=== PATIENT | male | born 1940 | race Caucasian/White ===

== ENCOUNTER 2016-04-28 12:45 | Emergency (ER) | payer OTHER ==
[~2016-04-28] VITALS: Ht 175.3 cm; Wt 88.0 kg
[~2016-04-28 12:45] MED LIST: ADV25050 INH; ALBU18HF INHALATION; ALBU8.5H5 INH; ASPI-664 PO; AZIT250T94 PO; FURO-109 PO; GUAI120S26 PO; HYT2 PO; LOSA25TA2 PO; METF500T4 PO; PRED20TA PO; REG SC; XOP15INH INH; [UNRECOGNIZED DRUG - OTHER] SC
[2016-04-28 12:51] VITALS: Ht 175.3 cm; Wt 88.0 kg
[2016-04-28] MEDS ORDERED: ONDANSETRON (ODT) 4 MG TAB ODT STA (13:19)
[2016-04-28] MEDS ORDERED: HYDROCODONE/APAP (10/325) TAB PO ONE (13:30)
--- NOTE | 2016-04-28 13:46 | RADRPT ---
PROCEDURE: XR Chest. CLINICAL INDICATION: Shortness of breath. TECHNIQUE: Single frontal view. COMPARISON: 02/20/2016. FINDINGS: The lungs are clear. The heart is mildly enlarged. There is no pleural effusion. There is no pneumothorax. IMPRESSION: 1. Clear lungs. 2. Mild cardiomegaly. RPTAT: QQ .Gus Thomas MD, MD Date Time Electronically viewed and signed by .Gus Thomas MD, MD on 04/28/2016 13:45 .R/
--- NOTE | 2016-04-28 13:54 | RADRPT ---
PROCEDURE: XR Pelvis. CLINICAL INDICATION: Pelvic pain and left hip pain. TECHNIQUE: Single AP view of the pelvis. COMPARISON: No prior studies are available for comparison. FINDINGS: There is no fracture or dislocation. There is no lytic or blastic lesion. The articular surfaces are intact. There are degenerative changes of both hips with osteophytes not ed. There are degenerative changes of the lower lumbar spine. There is no radiopaque foreign body. IMPRESSION: 1. Degenerative changes. 2. No fracture or other acute abnormality. RPTAT: QQ .Gus Thomas MD, MD Date Time Electronically viewed and signed by .Gus Thomas MD, MD on 04/28/2016 13:54 .R/
--- NOTE | 2016-04-28 14:13 | RADRPT ---
PROCEDURE: US Lower extremity Venous. CLINICAL INDICATION: Left leg pain TECHNIQUE: Multiple sonographic images of the left lower extremity deep venous system was obtained utilizing grayscale, color-flow, compressive sonography and doppler imaging with augmentation. The images were reviewed on a PACS workstation. COMPARISON: None. FINDINGS: There is normal compressibility and flow within the left common femoral, superficial femoral, pipeliner ior tibial, peroneal and popliteal veins. RPTAT: AA IMPRESSION: No sonographic evidence for deep venous thrombosis. .Burke Connors MD, MD Date Time Electronically viewed and signed by .Burke Connors MD, on 04/28/2016 14:13 .S/
[2016-04-28] MEDS ORDERED: HYDR-902 PO (14:35)
[2016-04-28] MEDS ORDERED: DOCU-144 PO (14:35)
--- NOTE | 2016-04-28 14:37 | ERD ---
ER Documentation Chief Complaint Date/Time DATE: 04/28/16 TIME: 14:36 Chief Complaint LT LEG PAIN X FEW WEEKS , SOB , B/L LE EDEMA HPI Patient is a 76-year-old male with diabetes, hypertension, and COPD who presents with left-sided leg pain. He has bilateral lower extremity swelling but this is chronic for him. He does take Lasix. He has sharp left-sided leg pain that started 2 weeks ago in his hip. He was "concerned for clot". He was complaining of shortness of breath as well. Upon review of old medical records this is the patient's ninth visit to the ER since 2007. ROS All systems reviewed and are negative except as per history of present illness. Medications Home Meds Active Scripts Docusate Sodium* (Colace*) 100 Mg Capsule, 100 MG PO BID, #60 CAP Prov:LC DWYER MD 04/28/16 Hydrocodone/Acetaminophen ([place] 10-325 Tablet) 1 Each Tablet, 1 TAB PO Q6H Y for PAIN, #7 TAB Prov:LC DWYER MD 04/28/16 Furosemide* (Lasix*) 40 Mg Tablet, 40 MG PO DAILY, #7 TAB Prov:MERCEDES ARELLANO MD 02/20/16 Azithromycin* (Zithromax*) 250 Mg Tablet, 250 MG PO .ZPACK DIRECTED, #6 TAB TAKE 500 MG (2 TABS) THE FIRST DAY THEN 250 MG (1 TAB) DAYS 2-5 Prov:MERCEDES ARELLANO MD 02/20/16 Albuterol Sulfate* (Ventolin HFA*) 18 Gm Hfa.aer.ad, 2 PUFF INHALATION Q4H, #1 INHALER Prov:MERCEDES ARELLANO MD 02/20/16 Prednisone* (Prednisone*) 20 Mg Tab, 40 MG PO DAILY for 4 Days, TAB Start February 21, 2016 Prov:MERCEDES ARELLANO MD 02/20/16 Jdjxapivqtg-M-Ogdurcaiwu Hb* (Guaifenesin* DM Syrup) 120 Ml Syrup, 10 ML PO Q4H Y for COUGH, #1 BOT Prov:DIANNA MARTÍNEZ NP 09/30/14 Albuterol Sulfate* (Albuterol Sulfate* HFA) 8.5 Gm Hfa.aer.ad, 1-2 PUFF INH Q4 Y for SHORTNESS OF BREATH, #1 EA Prov:CYNTHIADIANNA HOLM NIGHT MONITOR 09/30/14 Reported Medications Levalbuterol* (Xopenex* HFA) 15 Gm Inha, 1 INH INH Q12 05/20/11 Salmeterol Xinaf/Fluticasone* (Advair 250/50 Diskus*) 1 Inh Inha, 1 INH INH Q12 05/20/11 [Regular] No Conflict Check, 25 SC PM 01/01/11 Aspirin (Aspirin Low Dose) 81 Mg Tablet.dr, 81 MG PO AM, #1 01/01/11 Insulin Human Regular (Novolin-R) 100 Unit/Ml Soln, 15 UNIT SC AM, #1 12/30/10 Metformin* (Glucophage*) 500 Mg Tab, PO DAILY 12/30/10 Losartan Potassium* (Cozaar*) 25 Mg Tablet, PO DAILY 12/30/10 Terazosin Hcl* (Hytrin*) 2 Mg Capsule, 2 MG PO daily hs 11/12/10 Allergies Allergies: Coded Allergies: No Known Drug Allergies (Verified Allergy, Unknown, 08/22/13) PMhx/Soc History of Surgery: Yes Anesthesia Reaction: No Hx Neurological Disorder: No Hx Respiratory Disorders: Yes (COPD) Hx Cardiac Disorders: Yes (htn) Hx Psychiatric Problems: No Hx Miscellaneous Medical Probl: Yes (dm) Hx Alcohol Use: No Hx Substance Use: No Hx Tobacco Use: No Smoking Status: Never smoker FmHx Family History: diabetes Physical Exam Vitals Vital Signs Date Time Temp Pulse Resp B/P Pulse Ox O2 Delivery O2 Flow Rate FiO2 04/28/16 12:51 97.9 87 18 128/60 96 Physical Exam Const: No acute distress Head: Atraumatic Eyes: Normal Conjunctiva ENT: Normal External Ears, Nose and Mouth. Neck: Full range of motion..~ No meningismus. Resp: Clear to auscultation bilaterally Cardio: Regular rate and rhythm, no murmurs Abd: Soft, non tender, non distended. Normal bowel sounds Skin: No sign of cellulitis or infection Back: No midline or flank tenderness Ext: Bilateral lower extremity edema with good pulses bilaterally, patient does have pain of the left hip with range of motion but no deformity or rotation noted Neur: Awake and alert Psych: Normal Mood and Affect Results 24 hrs Current Medications Medications (Trade) Dose Ordered Sig/Joey Route PRN Reason Start Time Stop Time Status Last Admin Dose Admin Acetaminophen/ Hydrocodone Bitart ([place] (10)) 1 tab ONCE ONCE PO 04/28/16 13:30 04/28/16 13:31 DC 04/28/16 13:30 Ondansetron HCl (Zofran Odt) 4 mg ONCE STAT ODT 04/28/16 13:19 04/28/16 13:22 DC 04/28/16 13:30 Procedures/MDM EKG read by me: Rate/Rhythm: Regular rate and rhythm at a rate of 81 Intervals: Normal Impression: No evidence of ischemia or arrhythmia Ultrasound left lower extremity negative per radiology. Chest x-ray and pelvic x-ray negative per radiology. Patient is a 76-year-old male presents with left-sided leg pain. Ultrasound was negative for DVT. X-ray was negative for hip fracture. At this point I believe outpatient management is appropriate. The patient has no sign of arterial ischemia. There is no sign of infection or abscess. At this point I believe outpatient management is appropriate but he will need to follow-up with his primary doctor within 24-48 hours. The patient can return for any worsening symptoms. The patient will be given [place] for pain. Departure Diagnosis: Primary Impression: Pain of left leg Condition: Fair Patient Instructions: Possible Causes of Low Back or Leg Pain Referrals: Your doctor Additional Instructions: Call your primary care doctor TOMORROW for an appointment during the next 1-2 days.See the doctor sooner or return here if your condition worsens before your appointment time. LC DWYER MD Apr 28, 2016 14:36
== END 2016-04-28 14:51 | disposition home or self-care (01) ==
LOC: E/R 12:45
DX: M79.605 Pain in left leg (principal); E11.9 Type 2 diabetes mellitus without complications; I10 Essential (primary) hypertension; J44.9 Chronic obstructive pulmonary disease, unspecified; Z79.82 Long term (current) use of aspirin; Z79.84 Long term (current) use of oral hypoglycemic drugs
CPT/HCPCS: 71010; 72170; 93971; Z7502; Z7610

== ENCOUNTER 2016-07-23 12:07 | Emergency (ER) | payer OTHER ==
[~2016-07-23] VITALS: Ht 160 cm; Wt 89.0 kg
[~2016-07-23 12:07] MED LIST changes: +DOCU-144 PO; +HYDR-902 PO; +LEVA15HF6 INH; -XOP15INH INH
[2016-07-23 12:11] VITALS: Ht 160 cm; Wt 89.0 kg
[2016-07-23] MEDS ORDERED: HYDROCODONE/APAP (5/325) TAB PO ONE (14:00)
[2016-07-23] MEDS ORDERED: HYDR-906 PO (15:59)
--- NOTE | 2016-07-23 16:05 | ERD ---
ER Documentation Chief Complaint Date/Time DATE: 07/23/16 TIME: 16:03 Chief Complaint back pain intermittent x 2 mos ROS All systems reviewed and are negative except as per history of present illness. Medications Home Meds Active Scripts Hydrocodone/Acetaminophen ([place] 5-325 Tablet) 1 Each Tablet, 1 TAB PO Q6H Y for PAIN, #20 TAB Prov:JAS GARNER Rosalba 07/23/16 Docusate Sodium* (Colace*) 100 Mg Capsule, 100 MG PO BID, #60 CAP Prov:LC DWYER MD 04/28/16 Hydrocodone/Acetaminophen ([place] 10-325 Tablet) 1 Each Tablet, 1 TAB PO Q6H Y for PAIN, #7 TAB Prov:LC DWYER MD 04/28/16 Furosemide* (Lasix*) 40 Mg Tablet, 40 MG PO DAILY, #7 TAB Prov:MERCEDES ARELLANO MD 02/20/16 Azithromycin* (Zithromax*) 250 Mg Tablet, 250 MG PO .ZPACK DIRECTED, #6 TAB TAKE 500 MG (2 TABS) THE FIRST DAY THEN 250 MG (1 TAB) DAYS 2-5 Prov:MERCEDSE ARELLANO MD 02/20/16 Albuterol Sulfate* (Ventolin HFA*) 18 Gm Hfa.aer.ad, 2 PUFF INHALATION Q4H, #1 INHALER Prov:MERCEDES ARELLANO MD 02/20/16 Prednisone* (Prednisone*) 20 Mg Tab, 40 MG PO DAILY for 4 Days, TAB Start February 21, 2016 Prov:MERCEDES ARELLANO MD 02/20/16 Jpgrogxfucv-X-Tzpyrfetgy Hb* (Guaifenesin* DM Syrup) 120 Ml Syrup, 10 ML PO Q4H Y for COUGH, #1 BOT Prov:DIANNA MARTÍNEZ NP 09/30/14 Albuterol Sulfate* (Albuterol Sulfate* HFA) 8.5 Gm Hfa.aer.ad, 1-2 PUFF INH Q4 Y for SHORTNESS OF BREATH, #1 EA Prov:DIANNA MARTÍNEZ NP 09/30/14 Reported Medications Levalbuterol* (Xopenex* HFA) 15 Gm Inha, 1 INH INH Q12 05/20/11 Salmeterol Xinaf/Fluticasone* (Advair 250/50 Diskus*) 1 Inh Inha, 1 INH INH Q12 05/20/11 [Regular] No Conflict Check, 25 SC PM 01/01/11 Aspirin (Aspirin Low Dose) 81 Mg Tablet.dr, 81 MG PO AM, #1 01/01/11 Insulin Human Regular (Novolin-R) 100 Unit/Ml Soln, 15 UNIT SC AM, #1 12/30/10 Metformin* (Glucophage*) 500 Mg Tab, PO DAILY 12/30/10 Losartan Potassium* (Cozaar*) 25 Mg Tablet, PO DAILY 12/30/10 Terazosin Hcl* (Hytrin*) 2 Mg Capsule, 2 MG PO daily hs 11/12/10 Allergies Allergies: Coded Allergies: No Known Drug Allergies (Verified Allergy, Unknown, 08/22/13) PMhx/Soc History of Surgery: Yes Anesthesia Reaction: No Hx Neurological Disorder: No Hx Respiratory Disorders: Yes (COPD) Hx Cardiac Disorders: Yes (htn) Hx Psychiatric Problems: No Hx Miscellaneous Medical Probl: Yes (dm) Hx Alcohol Use: No Hx Substance Use: No Hx Tobacco Use: No Physical Exam Vitals Vital Signs Date Time Temp Pulse Resp B/P Pulse Ox O2 Delivery O2 Flow Rate FiO2 07/23/16 12:11 98.1 91 20 133/62 99 Physical Exam Const: [] Head: Atraumatic Eyes: Normal Conjunctiva ENT: Normal External Ears, Nose and Mouth. Neck: Full range of motion..~ No meningismus. Resp: Clear to auscultation bilaterally Cardio: Regular rate and rhythm, no murmurs Abd: Soft, non tender, non distended. Normal bowel sounds Skin: No petechiae or rashes Back: No midline or flank tenderness Ext: No cyanosis, or edema Neur: Awake and alert Psych: Normal Mood and Affect Results 24 hrs Current Medications Medications (Trade) Dose Ordered Sig/Joey Route PRN Reason Start Time Stop Time Status Last Admin Dose Admin Acetaminophen/ Hydrocodone Bitart ([place] (5/325)) 1 tab ONCE ONCE PO 07/23/16 14:00 07/23/16 14:01 DC 07/23/16 14:09 Vanessa/SHARON Lynn note- Subjective-patient presents with low-back pain and bilateral hip pain worsening over the last few months. His no history of acute trauma, fevers, bowel or bladder incontinence. Objective-patient has mild tenderness in the lumbar spine paraspinous muscles in pain with passive range of motion of bilateral hips. There is no evidence of ischemia, weakness. X-rays of hip and lumbar spine showed general changes without evidence of acute findings, fracture, dislocations. Assessment [id number] pain and bilateral hip pain without evidence of fracture , dislocation, which showed infection, neurologic deficit. Plan -pain control and instructions to follow-up with primary doctor nor speed piece for further evaluation. Instructions return for fevers, weakness, new or worsening symptoms. Departure Diagnosis: Primary Impression: Back pain Condition: Stable Patient Instructions: Back Pain (Acute Or Chronic) Additional Instructions: Llame al doctor MAANA y prabha erasmo TEMITOPE PARA DENTRO DE 1-2 CHERY.Dgale a la secretaria que nosotros le instruimos hacer esta temitope.Avise o llame si boss condicin se empeora antes de la temitope. Regresa aqui si peor o no mejor. MERCEDES ARELLANO MD July 23, 2016 16:05
--- NOTE | 2016-07-23 16:35 | RADRPT ---
PROCEDURE: XR Hip. CLINICAL INDICATION: Right hip pain. TECHNIQUE: AP and frog-leg lateral views of the right hip were obtained. COMPARISON: None FINDINGS: The osseous structures are well mineralized. No acute fracture or dislocations are seen. Mild to mod erate osteoarthritis of the right hip is seen. The soft tissue structures are intact. IMPRESSION: Mild to moderate osteoarthritis of the right hip. RPTAT: HPNM Physician Juan Date Time Electronically viewed and signed by Jeffrey Vickers Physician on 07/23/2016 16:35 /
--- NOTE | 2016-07-23 16:36 | RADRPT ---
PROCEDURE: XR Hip. CLINICAL INDICATION: Left hip pain. TECHNIQUE: AP and frog-leg lateral views of the left hip were obtained. COMPARISON: None FINDINGS: No acute fracture or dislocations are seen. Mild to moderate joint space narrowing and osteophytosis of the left hip is seen. The osseous structures are well mineralized. The soft tissue structures are intact. IMPRESSION: Mild to moderate osteoarthritis of the left hip. RPTAT: HPNM Physician Juan Date Time Electronically viewed and signed by Physician Juan on 07/23/2016 16:35 /
--- NOTE | 2016-07-23 16:37 | RADRPT ---
PROCEDURE: XR L-Spine. CLINICAL INDICATION: Low back pain. TECHNIQUE: AP, lateral, and cone down views of the lumbar spine were obtained. COMPARISON: None FINDINGS: The lumbar lordosis is straightened. Multilevel endplate osteophytosis is seen with disk height loss . The most significant disk height loss is seen at L5-S1 with moderate disk space narrowing with va cuum disk phenomena. The vertebral body heights are normal. No acute fracture or subluxation is se en. No paravertebral soft tissue abnormality is seen. Atherosclerotic vascular disease is seen. IMPRESSION: 1. Multilevel degenerative spondylosis of the lumbar spine as noted above. 2. Straightening of the lumbar lordosis. RPTAT: HPNM Physician Juan Date Time Electronically viewed and signed by Physician Juan on 07/23/2016 16:37 /
--- NOTE | 2016-07-23 17:14 | ERD ---
ER Documentation Chief Complaint Date/Time DATE: 07/23/16 TIME: 17:10 Chief Complaint back pain intermittent x 2 mos HPI This is a 76-year-old male presents to the ER with lower back pain that radiates to bilateral hips for the last 3 months. Patient was seen here 3 months ago with same complaints and stated that [place] really helped his pain. Patient has not had any trauma to the area. Back pain is severe and has become more constant he has been trying ibuprofen however it gives him stomach acid, so he stopped. Patient denies any fevers or chills. He denies any urinary bowel incontinence. He denies any saddle like anesthesia. ROS 12 point review of systems was done, all negative except per HPI. Medications Home Meds Active Scripts Hydrocodone/Acetaminophen ([place] 5-325 Tablet) 1 Each Tablet, 1 TAB PO Q6H Y for PAIN, #20 TAB Prov:JAS GARNER 07/23/16 Docusate Sodium* (Colace*) 100 Mg Capsule, 100 MG PO BID, #60 CAP Prov:LC DWYER MD 04/28/16 Hydrocodone/Acetaminophen ([place] 10-325 Tablet) 1 Each Tablet, 1 TAB PO Q6H Y for PAIN, #7 TAB Prov:LC DWYER MD 04/28/16 Furosemide* (Lasix*) 40 Mg Tablet, 40 MG PO DAILY, #7 TAB Prov:MERCEDES ARELLANO MD 02/20/16 Azithromycin* (Zithromax*) 250 Mg Tablet, 250 MG PO .ZPACK DIRECTED, #6 TAB TAKE 500 MG (2 TABS) THE FIRST DAY THEN 250 MG (1 TAB) DAYS 2-5 Prov:MERCEDES ARELLANO MD 02/20/16 Albuterol Sulfate* (Ventolin HFA*) 18 Gm Hfa.aer.ad, 2 PUFF INHALATION Q4H, #1 INHALER Prov:MERCEDES ARELLANO MD 02/20/16 Prednisone* (Prednisone*) 20 Mg Tab, 40 MG PO DAILY for 4 Days, TAB Start February 21, 2016 Prov:MERCEDES ARELLANO MD 02/20/16 Rvflrgsinfm-F-Roihmiwyqd Hb* (Guaifenesin* DM Syrup) 120 Ml Syrup, 10 ML PO Q4H Y for COUGH, #1 BOT Prov:DIANNA MARTÍNEZWilfredo [employer] 09/30/14 Albuterol Sulfate* (Albuterol Sulfate* HFA) 8.5 Gm Hfa.aer.ad, 1-2 PUFF INH Q4 Y for SHORTNESS OF BREATH, #1 EA Prov:DIANNA MARTÍNEZWilfredo [employer] 09/30/14 Reported Medications Levalbuterol* (Xopenex* HFA) 15 Gm Inha, 1 INH INH Q12 05/20/11 Salmeterol Xinaf/Fluticasone* ([place] 250/50 Diskus*) 1 Inh Inha, 1 INH INH Q12 05/20/11 [Regular] No Conflict Check, 25 SC PM 01/01/11 Aspirin (Aspirin Low Dose) 81 Mg Tablet.dr, 81 MG PO AM, #1 01/01/11 Insulin Human Regular (Novolin-R) 100 Unit/Ml Soln, 15 UNIT SC AM, #1 12/30/10 Metformin* (Glucophage*) 500 Mg Tab, PO DAILY 12/30/10 Losartan Potassium* (Cozaar*) 25 Mg Tablet, PO DAILY 12/30/10 Terazosin Hcl* (Hytrin*) 2 Mg Capsule, 2 MG PO daily hs 11/12/10 Allergies Allergies: Coded Allergies: No Known Drug Allergies (Verified Allergy, Unknown, 08/22/13) PMhx/Soc History of Surgery: Yes Anesthesia Reaction: No Hx Neurological Disorder: No Hx Respiratory Disorders: Yes (COPD) Hx Cardiac Disorders: Yes (htn) Hx Psychiatric Problems: No Hx Miscellaneous Medical Probl: Yes (dm) Hx Alcohol Use: No Hx Substance Use: No Hx Tobacco Use: No Physical Exam Vitals Vital Signs Date Time Temp Pulse Resp B/P Pulse Ox O2 Delivery O2 Flow Rate FiO2 07/23/16 12:11 98.1 91 20 133/62 99 Physical Exam GENERAL: The patient is well developed and appropriate for usual state of health , in no apparent distress. NECK: C-spine is soft and supple. There is no cervical lymphadenopathy. CHEST: Clear to auscultation bilaterally. There are no rales, wheezes or rhonchi. HEART: Regular rate and rhythm. No murmurs, clicks, rubs or gallops. ABDOMEN: Soft, nontender and nondistended. Good bowel sounds. No rebound or guarding. No gross peritonitis. No gross organomegaly or masses. No Mustafa sign or McBurney point tenderness. No pulsatile abdominal mass. BACK: No midline or flank tenderness. Tender to palpation from L3-L5. Tense paraspinal muscles. Negative leg raise test. No step- offs. Patient has full range of motion and non painful ROM of bilateral hips. EXTREMITIES: Equal pulses bilaterally. There is no peripheral clubbing, cyanosis or edema. No focal swelling or erythema. Full range of motion. Grossly neurovascularly intact. NEURO: Alert and oriented. Cranial nerves II through XII are intact. Motor strength in all 4 extremities with 5/5 strength. Sensation grossly intact. Normal speech and gait. SKIN: There is no apparent rash or petechia. The skin is warm and dry. Results 24 hrs Current Medications Medications (Trade) Dose Ordered Sig/Joey Route PRN Reason Start Time Stop Time Status Last Admin Dose Admin Acetaminophen/ Hydrocodone Bitart ([place] (5/325)) 1 tab ONCE ONCE PO 07/23/16 14:00 07/23/16 14:01 DC 07/23/16 14:09 Procedures/MDM Differential Diagnosis includes but is not limited to back strain, vertebral fracture, epidural abscess, cauda equina, herniated disc, AAA rupture, kidney stones, UTI, pyelonephritis. This is a 76-year-old male who presents to the ER with lower back pain that radiates to bilateral hips. Patient did have some degenerative changes on x-ray. Dr. Talamantes read xray and gave me a wet read. There is no history of trauma patient is neurovascularly intact. He is able to ambulate without any problems. He is afebrile and well-appearing. Patient has had this problem over the last few months likely acute on chronic pain. Patient will be sent home with [place]. He was advised to be very careful with because it may make him very sleepy or dizzy. I discussed the side effects with his as well. Patient is to follow-up with his primary care doctor within 1-2 days return to ER sooner if symptoms worsen. Patient understands and agrees with plan. Departure Diagnosis: Primary Impression: Back pain Condition: Stable Patient Instructions: Back Pain (Acute Or Chronic) Additional Instructions: Llame al doctor BENJAMIN armando erasmo TEMITOPE PARA DENTRO DE 1-2 CHERY.Dgale a la secretaria que nosotros le instruimos hacer esta temitope.Avise o llame si boss condicin se empeora antes de la temitope. Regresa aqui si peor o no mejor. JAS GARNER July 23, 2016 17:14
== END 2016-07-23 16:18 | disposition home or self-care (01) ==
LOC: FTE 12:07
DX: M54.5 Low back pain (principal); I10 Essential (primary) hypertension; J44.9 Chronic obstructive pulmonary disease, unspecified; E11.9 Type 2 diabetes mellitus without complications; Z79.4 Long term (current) use of insulin; Z79.82 Long term (current) use of aspirin; Z79.84 Long term (current) use of oral hypoglycemic drugs
CPT/HCPCS: 72100; 73510; Z7502; Z7610

== ENCOUNTER 2016-10-15 09:23 | Inpatient (IN) | payer OTHER ==
[~2016-10-15] VITALS: Ht 154.9 cm; Wt 70.0 kg
[~2016-10-15 09:23] MED LIST changes: +HYDR-906 PO
[2016-10-15 09:26] VITALS: Ht 154.9 cm; Wt 70.0 kg
[2016-10-15] MEDS ORDERED: ALBUTEROL 0.5% (NEB) 2.5 MG/0.5 ML AMP INH STA (10:00)
[2016-10-15] MEDS ORDERED: METHYLPREDNISOLONE 125 MG INJ IV STA (10:00)
--- NOTE | 2016-10-15 10:30 | ERA ---
ER Documentation Chief Complaint Date/Time DATE: 10/15/16 TIME: 10:28 Chief Complaint SOB X 3 WEEKS, HX COPD HPI This is a 76-year-old male with a history of COPD with gradual progressive worsening shortness of breath over the past 3 weeks. His symptoms today are was at the worst they have been when he has dyspnea on exertion and no orthopnea. He has had a slight cough for the past 2 weeks but nonproductive. He also states that he has lost 20 pounds in the past month with anorexia. Denies any abdominal pain chest pain fever dysuria hematuria back pain headache dizziness ROS All systems reviewed and are negative except as per history of present illness. Medications Home Meds Active Scripts Hydrocodone/Acetaminophen ([place] 5-325 Tablet) 1 Each Tablet, 1 TAB PO Q6H Y for PAIN, #20 TAB Prov:JAS GARNER 07/23/16 Docusate Sodium* (Colace*) 100 Mg Capsule, 100 MG PO BID, #60 CAP Prov:LC DWYER MD 04/28/16 Hydrocodone/Acetaminophen ([place] 10-325 Tablet) 1 Each Tablet, 1 TAB PO Q6H Y for PAIN, #7 TAB Prov:LC DWYER MD 04/28/16 Furosemide* (Lasix*) 40 Mg Tablet, 40 MG PO DAILY, #7 TAB Prov:MERCEDES ARELLANO MD 02/20/16 Azithromycin* (Zithromax*) 250 Mg Tablet, 250 MG PO .ZPACK DIRECTED, #6 TAB TAKE 500 MG (2 TABS) THE FIRST DAY THEN 250 MG (1 TAB) DAYS 2-5 Prov:MERCEDES ARELLANO MD 02/20/16 Albuterol Sulfate* (Ventolin HFA*) 18 Gm Hfa.aer.ad, 2 PUFF INHALATION Q4H, #1 INHALER Prov:MERCEDES ARELLANO MD 02/20/16 Prednisone* (Prednisone*) 20 Mg Tab, 40 MG PO DAILY for 4 Days, TAB Start February 21, 2016 Prov:MERCEDES ARELLANO MD 02/20/16 Hfdnvcdlawn-U-Qznnfebphu Hb* (Guaifenesin* DM Syrup) 120 Ml Syrup, 10 ML PO Q4H Y for COUGH, #1 BOT Prov:DIANNA MARTÍNEZ NP 09/30/14 Albuterol Sulfate* (Albuterol Sulfate* HFA) 8.5 Gm Hfa.aer.ad, 1-2 PUFF INH Q4 Y for SHORTNESS OF BREATH, #1 EA Prov:DIANNA MARTÍNEZ BEATA Peck [employer] 09/30/14 Reported Medications Levalbuterol* (Xopenex* HFA) 15 Gm Inha, 1 INH INH Q12 05/20/11 Salmeterol Xinaf/Fluticasone* (Advair 250/50 Diskus*) 1 Inh Inha, 1 INH INH Q12 05/20/11 [Regular] No Conflict Check, 25 SC PM 01/01/11 Aspirin (Aspirin Low Dose) 81 Mg Tablet.dr, 81 MG PO AM, #1 01/01/11 Insulin Human Regular (Novolin-R) 100 Unit/Ml Soln, 15 UNIT SC AM, #1 12/30/10 Metformin* (Glucophage*) 500 Mg Tab, PO DAILY 12/30/10 Losartan Potassium* (Cozaar*) 25 Mg Tablet, PO DAILY 12/30/10 Terazosin Hcl* (Hytrin*) 2 Mg Capsule, 2 MG PO daily hs 11/12/10 Allergies Allergies: Coded Allergies: No Known Drug Allergies (Verified Allergy, Unknown, 08/22/13) PMhx/Soc History of Surgery: Yes Anesthesia Reaction: No Hx Neurological Disorder: No Hx Respiratory Disorders: Yes (COPD) Hx Cardiac Disorders: Yes (htn) Hx Psychiatric Problems: No Hx Miscellaneous Medical Probl: Yes (dm) Hx Alcohol Use: No Hx Substance Use: No Hx Tobacco Use: No Smoking Status: Never smoker FmHx Family History: No coronary disease Physical Exam Vitals Vital Signs Date Time Temp Pulse Resp B/P Pulse Ox O2 Delivery O2 Flow Rate FiO2 10/15/16 11:28 110 24 148/73 100 Nasal Cannula 2.0 10/15/16 10:25 2.0 10/15/16 10:24 91 18 100 Nasal Cannula 2.0 10/15/16 10:06 Nasal Cannula 2 10/15/16 09:54 Nasal Cannula 2.0 10/15/16 09:26 97.6 57 24 114/57 87 Physical Exam Const: [Well-developed, well-nourished] Head: [Atraumatic, normocephalic] Eyes: [Normal Conjunctiva, PERRLA, EOMI, normal sclera, no nystagmus] ENT: [Normal External Ears, Nose and Mouth, moist mucus membranes.] Neck: [Full range of motion. No meningismus, no lymphadenopathy.] Resp: Distant breath sounds bilaterally decreased breath sounds in the bases Cardio: [Regular rate and rhythm, no murmurs, S1 S2 present] Abd: [Soft, non tender x 4, non distended. Normal bowel sounds, no guarding or rebound, no pulsitile abdominal masses or bruits] Skin: [No petechiae or rashes, no ecchymosis , no maculopapular rash] Back: [No midline or flank tenderness] Ext: [No cyanosis, or edema, FROM x 4, normal inspection, neurovascularly intact x 4] Neur: [Awake and alert, STR 5/5 x 4, sensation intact x 4, no focal findings, cerebellum intact] Psych: [Normal Mood and Affect] Result Diagram: 10/15/16 1005 10/15/16 1005 Results 24 hrs Laboratory Tests Test 10/15/16 10:05 10/15/16 12:36 10/15/16 13:18 White Blood Count 7.710^3/ul Red Blood Count 2.7510^6/ul Hemoglobin 8.1g/dl Hematocrit 25.0% Mean Corpuscular Volume 90.9fl Mean Corpuscular Hemoglobin 29.5pg Mean Corpuscular Hemoglobin Concent 32.4g/dl Red Cell Distribution Width 18.4% Platelet Count 08062^3/UL Mean Platelet Volume 10.1fl Neutrophils % % Segmented Neutrophils % (Manual) 36% Band Neutrophils % (Manual) 8% Lymphocytes % % Lymphocytes % (Manual) 37% Monocytes % % Monocytes % (Manual) 2% Eosinophils % % Eosinophils % (Manual) 5% Basophils % % Basophils % (Manual) 2% Metamyelocytes % (manual) 1% Myelocytes % (Manual) 4% Promyelocytes % (Manual) 2% Nucleated Red Blood Cells % 16% Neutrophils # 10^3/ul Neutrophils # (Manual) 2.810^3/ul Band Neutrophils # 0.610^3/ul Absolute Lymphocytes (Manual) 2.810^3/ul Lymphocytes # 10^3/ul Monocytes # 10^3/ul Absolute Monocytes (Manual) 0.110^3/ul Eosinophils # 10^3/ul Basophils # 10^3/ul Basophils # (Manual) 0.110^3/ul Metamyelocytes # 0.010^3/ul Myelocytes # 0.310^3/ul Promyelocytes # 0# Nucleated Red Blood Cells # 10^3/ul Platelet Estimate DECREASED Polychromasia 2+ Hypochromasia 1+ Anisocytosis 1+ Macrocytosis 1+ Prothrombin Time 13.2Sec Prothrombin Time Ratio 1.0 INR International Normalized Ratio 1.00 Activated Partial Thromboplast Time 28.1Sec Sodium Level 133mmol/L Potassium Level 5.1mmol/L Chloride Level 97mmol/L Carbon Dioxide Level 22mmol/L Anion Gap 19 Blood Urea Nitrogen 15mg/dl Creatinine 0.75mg/dl Glucose Level 407mg/dl Calcium Level 8.2mg/dl Total Bilirubin 0.5mg/dl Direct Bilirubin 0.00mg/dl Indirect Bilirubin 0.5mg/dl Aspartate Amino Transf (AST/SGOT) 35IU/L Alanine Aminotransferase (ALT/SGPT) 27IU/L Alkaline Phosphatase 1398IU/L Troponin I < 0.012ng/ml B-Type Natriuretic Peptide 402PG/ML Total Protein 6.9g/dl Albumin 3.6g/dl Globulin 3.30g/dl Albumin/Globulin Ratio 1.09 Bedside Glucose 435mg/dL 429mg/dL Current Medications Medications (Trade) Dose Ordered Sig/Joey Route PRN Reason Start Time Stop Time Status Last Admin Dose Admin Albuterol (Proventil 0.5% (Neb)) 10 mg ONCE STAT INH 10/15/16 10:00 10/15/16 10:03 DC 10/15/16 10:22 Methylprednisolone Sodium Succinate (Solu-Medrol) 125 mg ONCE STAT IV 10/15/16 10:00 10/15/16 10:04 DC 10/15/16 10:11 Insulin Human Regular (Novolin-R) 8 unit ONCE ONCE SC 10/15/16 11:30 10/15/16 11:31 Cancel Insulin Human Regular (Humulin R) 8 unit ONCE ONCE SC 10/15/16 12:00 10/15/16 12:01 DC 10/15/16 11:50 Procedures/MDM EKG: Rate/Rhythm: [Normal Sinus Rhythm,NL intervals] QRS, ST, QT: NORMAL LA, QRS, QT] Impression: [NORMAL EKG] PROCEDURE: XR Chest. CLINICAL INDICATION: chest pain TECHNIQUE: Single AP view of the chest were obtained COMPARISON: 04/28/2016 FINDINGS: The heart and mediastinum are within normal limits. The pulmonary vasculature are unremarkable. The aorta is unremarkable. There is no lung consolidation, pleural effusion or pneumothorax. There is no acute osseous abnormality. IMPRESSION: No acute disease. RPTAT: AA .Branden Alanis MD, MD Date Time Electronically viewed and signed by .Branden Alanis MD, on 10/15/2016 10:44 .J/ CC: ZAIDA LOPEZ DO Patient states he feels much better after his breathing treatments. The patient has some unexplained weight loss of 20 pounds over the past month. Does need to be investigated. He does have anemia that is not micro-or macrocytic and should be worked up for acute loss. He says he can only walk 2 or 3 feet before he gets very short of breath. He said 3 weeks ago he was able to walk about 30-50 feet. He is not on any home oxygen at this time We will admit for COPD exacerbation, anemia, severe weight loss Departure Diagnosis: Primary Impression: COPD exacerbation Additional Impressions: Anemia Qualified Code: D64.9 - Anemia, unspecified type Weight loss Condition: Stable ZAIDA LOPEZ DO Oct 15, 2016 10:30
[2016-10-15 10:31] LABS: ABNORMAL IP MESSAGE 1; HEMOGLOBIN 8.1 g/dl (14.0-18.0); MEAN CORPUSCULAR HEMOGLOBIN 29.5 pg (29.0-33.0); MEAN CORPUSCULAR HGB CONC 32.4 g/dl (32.0-37.0); MEAN CORPUSCULAR VOLUME 90.9 fl (82.0-101.0); MEAN PLATELET VOLUME 10.1 fl (7.4-10.4); NUCLEATED RED BLOOD CELLS% 21.7 /100WBC (0.0-0.0); PLATELET COUNT 225 10^3/UL (140-415); POSITIVE DIFF @See below; RED BLOOD COUNT 2.75 10^6/ul (4.70-6.10); RED CELL DISTRIBUTION WIDTH 18.4 % (11.5-14.5); WHITE BLOOD COUNT 7.7 10^3/ul (4.8-10.8)
--- NOTE | 2016-10-15 10:44 | RADRPT ---
PROCEDURE: XR Chest. CLINICAL INDICATION: chest pain TECHNIQUE: Single AP view of the chest were obtained COMPARISON: 04/28/2016 FINDINGS: The heart and mediastinum are within normal limits. The pulmonary vasculature are unremarkable. The aorta is unremarkable. There is no lung consolidation, pleural effusion or pneumothorax. There i s no acute osseous abnormality. IMPRESSION: No acute disease. RPTAT: AA .Branden Alanis MD, Date Time Electronically viewed and signed by .Branden Alanis MD, MD on 10/15/2016 10:44 .J/
[2016-10-15 10:46] LABS: PARTIAL THROMBOPLASTIN TIME 28.1 Sec (25.0-35.0); PROTIME 13.2 Sec (12.2-14.2)
[2016-10-15 10:48] LABS: ALANINE AMINOTRANSFERASE 27 IU/L (13-69); ALBUMIN 3.6 g/dl (3.3-4.9); ALBUMIN/GLOBULIN RATIO 1.09; ALKALINE PHOSPHATASE 1398 IU/L (42-121); ANION GAP 19 (8-16); ASPARTATE AMINO TRANSFERASE 35 IU/L (15-46); BILIRUBIN,INDIRECT 0.5 mg/dl (0-1.1); BILIRUBIN,TOTAL 0.5 mg/dl (0.2-1.3); BLOOD UREA NITROGEN 15 mg/dl (7-20); CALCIUM 8.2 mg/dl (8.4-10.2); CARBON DIOXIDE 22 mmol/L (21-31); CHLORIDE 97 mmol/L (97-110); CREATININE 0.75 mg/dl (0.61-1.24); POTASSIUM 5.1 mmol/L (3.5-5.1); SODIUM 133 mmol/L (135-144); TOTAL PROTEIN 6.9 g/dl (6.1-8.1)
[2016-10-15 10:54] LABS: GLUCOSE 407 mg/dl (70-220)
[2016-10-15 11:00] LABS: B-TYPE NATRIURETIC PEPTIDE 402 PG/ML (0-450)
[2016-10-15 11:01] LABS: TROPONIN-I < 0.012 ng/ml (0.00-0.12)
[2016-10-15] MEDS ORDERED: INSULIN REGULAR 10 ML INJ SC ONE (11:30)
[2016-10-15 11:47] LABS: ANISOCYTOSIS 1+ (0-0); BASOPHILS % (M) 2 % (0-2); EOSINOPHILS % (M) 5 % (0-7); ERYTHROBLAST% (NRBC) (M) 16 % (0-0); HYPOCHROMASIA 1+ (0-0); METAMYELOCYTES %M 1 % (0-0); MONOCYTES % (M) 2 % (0-11); MYELOCYTES % (M) 4 % (0.0-0.0); PLATELET ESTIMATE DECREASED; POLYCHROMASIA 2+ (0-0); PROMYELOCYTES #M 0 # (0-0); PROMYELOCYTES % (M) 2 % (0-0)
[2016-10-15] MEDS ORDERED: INSULIN REGULAR, HUMAN 100 UNIT/1 ML 3ML VIAL SC ONE ×2 (12:00→13:30)
[2016-10-15] MEDS ORDERED: ONDANSETRON 4 MG INJ IV PRN ×2 (13:30→18:30)
[2016-10-15] MEDS ORDERED: ACETAMINOPHEN 325 MG TAB PO PRN ×2 (13:30→18:30)
[2016-10-15] MEDS ORDERED: FUROSEMIDE 20 MG INJ IV ONE (13:30)
[2016-10-15 14:48] VITALS: TEMP 99.1
[2016-10-15] MEDS ORDERED: SOD CHLORIDE 0.9% 500 ML IV STA (14:52)
[2016-10-15] MEDS ORDERED: ALBUTEROL/IPRATROPIUM (NEB) 3 ML AMP HHN PRN (15:30)
--- NOTE | 2016-10-15 16:03 | RADRPT ---
PROCEDURE: CT chest without contrast. CLINICAL INDICATION: Unexplained weight loss into back is TECHNIQUE: CT scan of the chest without contrast was performed on a multi-slice CT scanner. The p atient was scanned without administration of intravenous contrast. Coronal and sagittal reformatted images were obtained from the axial source images. One or more of the following dose reduction techniques were used: - Automated exposure control. - Adjustment of the mA and/or kV according to patient size. Use of iterative reconstruction technique. DLP vol 305.8 mGy CTDI 8.9 mGy-cm COMPARISON: None. FINDINGS: There is no lung consolidation or pleural effusion or pneumothorax. Mild emphysematous changes are s een in the lungs with mild areas of subpleural scarring. There is mild bibasilar atelectasis presen t. Bilateral airways wall thickening is seen. The airways are patent. There is no suspicious nodu le or mass. Aortic and coronary artery atherosclerotic calcifications are present. There is ascending aortic bor derline aneurysmal enlargement measuring up to 4 cm at the greatest AP dimension. There is borderli ne cardiomegaly with trace pericardial fluid. There are no enlarged axillary or mediastinal lymph no hermelinda. There is no acute upper abdominal abnormality. There is a diffusely sclerotic appearance of the osseous structures. Degenerative changes seen thro ughout the thoracic spine there is no fracture or dislocation. IMPRESSION: There is a generalized sclerotic appearance of the entirety the osseous structures of the thorax. T his could represent a diffuse metastatic process or presence of osteodystrophy. This can be further assessed with bone scan or MRI of the thoracic and lumbar spine. Emphysema is seen with mild bibasilar atelectasis and trace subpleural scarring without evidence of acute process. Cardiomegaly is seen with atherosclerotic disease. There is borderline ascending aortic aneurysmal enlargement measuring 4 cm. RPTAT: AA .Branden Alanis MD, Date Time Electronically viewed and signed by .Branden Alanis MD, MD on 10/15/2016 16:03 .Eduard/
[2016-10-15] MEDS ORDERED: SOD CHLORIDE 0.9% 1,000 ML IV STA (16:13)
[2016-10-15 16:48] LABS: IRON 39 ug/dl (35-150)
[2016-10-15 16:58] LABS: TOTAL IRON BINDING CAPACITY 208 ug/dl (241-421)
[2016-10-15 17:26] LABS: THYROID STIMULATING HORMONE 6.46 MIU/L (0.465-4.680)
[2016-10-15 17:46] VITALS: PULSE 107
[2016-10-15] MEDS ORDERED: morphine 2 MG INJ IV PRN (18:30)
[2016-10-15] MEDS ORDERED: NACL 0.9% 3 ML SYG IV SCH (18:30)
[2016-10-15] MEDS ORDERED: ONDANSETRON 4 MG TAB PO PRN (18:30)
[2016-10-15] MEDS ORDERED: ALBUTEROL 18 GM INHALER INH PRN (18:30)
[2016-10-15] MEDS ORDERED: HYPOGLYCEMIA PROTOCOL when Glucose is <70 mg/dL or symptomatic <90 mg/dL. XX ONE (18:30)
[2016-10-15] MEDS ORDERED: Discontinue current oral sulfonylureas (glyburide, glipizide, and/or glimepiride) prior to XX ONE (18:30)
[2016-10-15] MEDS ORDERED: BISACODYL (EC) 5 MG TAB PO PRN (18:30)
[2016-10-15] MEDS ORDERED: METOCLOPRAMIDE 10 MG INJ IV PRN (18:30)
[2016-10-15] MEDS ORDERED: MAGNESIUM HYDROXIDE 30ML CUP PO PRN (18:30)
[2016-10-15] MEDS ORDERED: DOCUSATE SODIUM 100 MG CAP PO PRN (18:30)
[2016-10-15] MEDS ORDERED: SOD CHLORIDE 0.9% 1,000 ML IV ONE (18:30)
[2016-10-15] MEDS ORDERED: INSULIN ASPART [NOVOLOG] 3 ML PEN SC SCH ×2 (18:45→21:00)
[2016-10-15] MEDS ORDERED: INSULIN ASPART [NOVOLOG] 3 ML PEN SC STA (18:50)
[2016-10-15] MEDS ORDERED: DEXTROSE 50% 50 ML SYRINGE IV PRN ×4 (19:00)
[2016-10-15] MEDS ORDERED: GLUCOSE GEL 15 GRAM TUBE BUCCAL PRN (19:00)
[2016-10-15] MEDS ORDERED: GLUCAGON 1 MG INJ IM PRN (19:00)
[2016-10-15] MEDS ORDERED: ACCU-CHEK XX SCH (19:00)
[2016-10-15] MEDS ORDERED: INSULIN HUMAN REGULAR 100 UNIT in SOD CHLORIDE 0.9% 99 ML IV SCH (19:00)
[2016-10-15] MEDS ORDERED: GLUCOSE GEL 15 GRAM TUBE PO PRN ×2 (19:00)
--- NOTE | 2016-10-15 19:02 | HP ---
Date/Time of Note Date/Time of Note DATE: 10/15/16 TIME: 18:51 Assessment/Plan VTE Prophylaxis VTE Prophylaxis Intervention: SCD's Assessment/Plan Assessment/Plan 76 yo M with DM2, COPD presented with SOB likely 2/2 acute COPD exacerbation. Of greater concern however is patient's DKA/hyperglycemia and apparent self neglect for the past few mos. Etio of weight loss possibly from hyperglycemia v depression v malignancy. #COPD exacerbation: likely given wheezing prednisone burst duonebs #DKA: tried to get pt to ICU for insulin drip, no beds will treat aggressively with IVFs/basal and bolus insulin serum acetone and ketones UA for ketones repeat BMP to eval gap DM education cs #weight loss: uncontrolled DM v occult malignancy v depression CT results reviewed, bone scan ordered sw consult depression labs in process, b12/TFTs #HTN/BPH: cont home cozaar and hytrin diabetic diet DVT prophx HPI/ROS Admit Date/Time Admit Date/Time Oct 15, 2016 at 13:31 Hx of Present Illness CC SOB HPI 76 yo M with pmhx COPD, HTN, BPH, DM2 presents with several days of SOB. Pt states he's actually been feeling SOB for the past 3 years but it recently got acutely worse. Pt also reports decreased appetite and decreased PO intake and 20 pounds weight loss in the past month. +polyuria, +polydipsia. +constipation. No diarrhea. No fevers or chills Of larger concern, pt has not been taking his insulin for the past month because he has been feeling depressed. No previous history of low mood PMH/Family/Social Past Medical History as per [facility] Social History Smoking Status: Never smoker Exam/Review of Systems Vital Signs Vitals Vital Signs Date Time Temp Pulse Resp B/P Pulse Ox O2 Delivery O2 Flow Rate FiO2 10/15/16 17:46 107 10/15/16 14:48 99.1 24 135/66 100 Nasal Cannula 2.0 Exam Exam nad, sitting up in bed flat affect MMM EOMI no mrg lungs with mod scattered end exp wheezes abd soft no rashes no edema BMP with AG a1c 13s. all previous times checked here >10 TSH high lung imaging reviewed Labs Result Diagram: 10/15/16 1005 10/15/16 1005 Medications Medications Current Medications Diagnostic Test (Pha) (Accu-Chek) 1 ea 02 XX ; Start 10/16/16 at 02:00; Status UNV Insulin Glargine (Lantus) 11 unit DAILY@08 SC ; Start 10/16/16 at 08:00; Status UNV Diagnostic Test (Pha) 1 ea 1 ea 02 XX ; Start 10/16/16 at 02:00; Status UNV Sodium Chloride (NS) 1,000 ml @ 1,000 mls/hr Q1H ONCE IV ; Start 10/15/16 at 18 :30; Stop 10/15/16 at 19:29; Status UNV Ondansetron HCl (Zofran Tab) 4 mg Q6H PRN PO NAUSEA AND/OR VOMITING; Start at 18:30 Ondansetron HCl (Zofran Inj) 4 mg Q6H PRN IV NAUSEA AND/OR VOMITING; Start at 18:30; Status UNV Metoclopramide HCl (Reglan) 10 mg Q6H PRN IV NAUSEA AND/OR VOMITING; Start at 18:30; Status UNV Acetaminophen (Tylenol Tab) 650 mg Q6H PRN PO PAIN LEVEL 1-3 OR FEVER; Start at 18:30; Status UNV Acetaminophen/ Hydrocodone Bitart ([place] (5/325)) 1 tab Q6H PRN PO PAIN LEVEL 4 -6; Start 10/15/16 at 18:30; Status UNV Morphine Sulfate (morphine) 2 mg Q4H PRN IV PAIN LEVEL 7-10; Start 10/15/16 at 18:30; Status UNV Docusate Sodium (Colace) 100 mg Q12H PRN PO CONSTIPATION; Start 10/15/16 at 18: 30; Status UNV Magnesium Hydroxide (Milk Of Mag) 30 ml DAILY PRN PO CONSTIPATION; Start at 18:30; Status UNV Bisacodyl (Dulcolax) 5 mg DAILY PRN PO CONSTIPATION; Start 10/15/16 at 18:30; Status UNV Enoxaparin Sodium (Lovenox) 40 mg DAILY SC ; Start 10/16/16 at 09:00; Status UNV Albuterol (Ventolin Hfa) as above Q4 PRN INH SHORTNESS OF BREATH; Start at 18:30; Status UNV Aspirin (Halfprin) 81 mg AM PO ; Start 10/16/16 at 09:00; Status UNV Furosemide (Lasix) 40 mg DAILY PO ; Start 10/16/16 at 09:00; Status UNV Salmeterol Xinafoate/ Fluticasone (Advair 250/50 Diskus) 1 inh Q12 INH ; Start 10/15/16 at 21:00; Status UNV Terazosin HCl (Hytrin) 2 mg QHS PO ; Start 10/15/16 at 21:00; Status UNV Losartan Potassium (Cozaar) 25 mg DAILY PO ; Start 10/16/16 at 09:00; Status UNV Miscellaneous Information 1 ea NOTE XX ; Start 10/15/16 at 19:00 Glucose (Glutose) 15 gm Q15M PRN PO DECREASED GLUCOSE; Start 10/15/16 at 19:00 Glucose (Glutose) 22.5 gm Q15M PRN PO DECREASED GLUCOSE; Start 10/15/16 at 19: 00 Dextrose (D50w Syringe) 25 ml Q15M PRN IV DECREASED GLUCOSE; Start 10/15/16 at 19:00 Dextrose (D50w Syringe) 50 ml Q15M PRN IV DECREASED GLUCOSE; Start 10/15/16 at 19:00 Glucagon (Glucagen) 1 mg Q15M PRN IM DECREASED GLUCOSE; Start 10/15/16 at 19:00 Glucose (Glutose) 15 gm Q15M PRN BUCCAL DECREASED GLUCOSE; Start 10/15/16 at 19 :00 BENNY GARRETT MD Oct 15, 2016 19:01
[2016-10-15] MEDS: SOD CHLORIDE 0.9% 1,000 ML IV SCH ×2 (19:24→23:37)
[2016-10-15 19:45] VITALS: BP 126/66; RESP 18
[2016-10-15 20:15] VITALS: PULSE 103
[2016-10-15 20:29] LABS: CALCIUM 7.7 mg/dl (8.4-10.2); CREATININE 0.57 mg/dl (0.61-1.24); MAGNESIUM 1.8 mg/dl (1.7-2.5)
[2016-10-15] MEDS: SALMETEROL/FLUTICASONE 250/50 INHA INH SCH (20:54)
[2016-10-15] MEDS ORDERED: TERAZOSIN 2 MG CAP PO SCH (21:00)
--- NOTE | 2016-10-15 21:23 | RADRPT ---
PROCEDURE: Ultrasound of the bilateral lower extremity venous system. CLINICAL INDICATION: Bilateral leg pain and swelling, deep venous thrombosis TECHNIQUE: Clayton scale with and without compression, color doppler, spectral doppler of the venous system of the bilateral lower extremities was performed. Venous augmentation maneuvers were utilized . COMPARISON: 04/28/2016 FINDINGS: RIGHT: Common femoral vein: Patent. Femoral vein: Patent. Popliteal vein: Patent. Calf veins: Patent. No soft tissue abnormalities are identified. LEFT: Common femoral vein: Patent. Femoral vein: Patent. Popliteal vein: Patent. Calf veins: Patent. No soft tissue abnormalities are identified. IMPRESSION: No evidence of a deep vein thrombosis within the bilateral lower extremities. RPTAT: AADD .Murali Adams MD, MD Date Time Electronically viewed and signed by .Murali Adams MD, on 10/15/2016 21:23 .B/
[2016-10-15] MEDS ORDERED: INSULIN ASPART [NOVOLOG] 3 ML PEN SC ONE (21:30)
[2016-10-15] MEDS ORDERED: INSULIN GLARGINE [LANtus] 3 ML PEN SC SCH (22:00)
[2016-10-15] MEDS: ACCU-CHEK XX SCH (23:31)
[2016-10-15 23:55] VITALS: BP 125/62; RESP 18
[2016-10-16] VITALS (11 sets, daily range): BP systolic 107–131; BP diastolic 52–60; PULSE 84–107; RESP 16–18
[2016-10-16] MEDS ORDERED: INSULIN ASPART [NOVOLOG] 3 ML PEN SC ONE
[2016-10-16 00:23] LABS: CALCIUM 7.8 mg/dl (8.4-10.2); CREATININE 0.57 mg/dl (0.61-1.24); POTASSIUM 3.9 mmol/L (3.5-5.1)
[2016-10-16 01:38] LABS: ADD UMIC NO; UR ASCORBIC ACID NEGATIVE (NEGATIVE); UR BILIRUBIN (Dip) NEGATIVE (NEGATIVE); UR BLOOD (Dip) NEGATIVE (NEGATIVE); UR CLARITY CLEAR (CLEAR); UR COLOR STRAW (YELLOW); UR GLUCOSE (Dip) 3+ mg/dL (NEGATIVE); UR KETONES (Dip) TRACE mg/dL (NEGATIVE); UR LEUKOCYTE ESTERASE (Dip) NEGATIVE Leu/ul (NEGATIVE); UR NITRITE (Dip) NEGATIVE (NEGATIVE); UR SPECIFIC GRAVITY (Dip) 1.015 (1.003-1.030); UR TOTAL PROTEIN (Dip) NEGATIVE (NEGATIVE); UR UROBILINOGEN (Dip) NEGATIVE (NEGATIVE)
[2016-10-16] MEDS ORDERED: POTASSIUM CHLORIDE (SR) 20 MEQ TAB PO STA (01:43)
[2016-10-16] MEDS: ACCU-CHEK XX SCH (01:50)
[2016-10-16] MEDS ORDERED: ACCU-CHEK XX SCH ×4 (02:00)
[2016-10-16] MEDS: SOD CHLORIDE 0.9% 1,000 ML IV SCH ×2 (05:38→17:35)
[2016-10-16] MEDS ORDERED: INSULIN ASPART [NOVOLOG] 3 ML PEN SC SCH ×2 (08:00→09:00)
[2016-10-16] MEDS ORDERED: INSULIN GLARGINE [LANtus] 3 ML PEN SC SCH (08:00)
[2016-10-16 08:22] LABS: ALBUMIN 3.2 g/dl (3.3-4.9); ALBUMIN/GLOBULIN RATIO 1.03; BILIRUBIN,INDIRECT 0.4 mg/dl (0-1.1); BILIRUBIN,TOTAL 0.4 mg/dl (0.2-1.3); CALCIUM 7.6 mg/dl (8.4-10.2); CREATININE 0.59 mg/dl (0.61-1.24); POTASSIUM 4.5 mmol/L (3.5-5.1); TOTAL PROTEIN 6.3 g/dl (6.1-8.1)
[2016-10-16] MEDS: SALMETEROL/FLUTICASONE 250/50 INHA INH SCH ×2 (09:24→21:29)
[2016-10-16] MEDS: LOSARTAN 25 MG TAB PO SCH (09:26)
[2016-10-16] MEDS: ASPIRIN (EC) 81 MG TAB PO SCH (09:26)
[2016-10-16] MEDS: FUROSEMIDE 40 MG TAB PO SCH (09:26)
[2016-10-16] MEDS: predniSONE 20 MG TAB PO SCH (09:26)
[2016-10-16] MEDS: ENOXAPARIN 40 MG/0.4 ML SYG SC SCH (09:31)
--- NOTE | 2016-10-16 10:10 | PN ---
Date/Time of Note Date/Time of Note DATE: 10/16/16 TIME: 10:10 Assessment/Plan VTE Prophylaxis VTE Prophylaxis Intervention: SCD's Lines/Catheters IV Catheter Type (from [facility]): Peripheral IV Assessment/Plan Chief Complaint/Hosp Course 1. COPD exacerbation, resolving Continue [id number] bronchodilators and oral prednisone 2. Type 2 diabetes, presented with DKA. DKA resolved. -Transition to diet and subcutaneous insulin sliding scale based on weight. Patient will be also given pre-meal insulin 3 times daily. -Endocrinology consult. 3. Hypertension. Stable -Continue Cozaar 4. BPH -On Hytrin. Plan: Patient will be started on a carbohydrate controlled diet. He will also have diabetic education. We will follow-up with endocrinology recommendation. Case discussed with Dr. Doss. Problems: Subjective 24 Hr Interval Summary Free Text/Dictation Patient with no shortness of breath, or other discomfort at this time. Exam/Review of Systems Vital Signs Vitals Vital Signs Date Time Temp Pulse Resp B/P Pulse Ox O2 Delivery O2 Flow Rate FiO2 10/16/16 08:07 84 10/16/16 07:42 97.6 16 120/59 95 10/15/16 14:48 Nasal Cannula 2.0 Intake and Output 10/15/16 10/15/16 10/16/16 15:00 23:00 07:00 Intake Total 80 ml 2033 ml Output Total 100 ml 650 ml Balance -20 ml 1383 ml Exam General: Elderly male, lying in bed not in any acute distress . HEENT: Normocephalic, Atraumatic, No laceration or hematoma; Eyes: PEERL, Conjunctiva clear, Anicteric sclera Neck: Supple without any lymphadenopathy, nontender, no JVD, no carotid bruits, trachea midline, no thyromegaly Cardiac: S1, S2 auscultated, regular rhythm and rate, no mumurs or gallop Pulmonary: Mild wheezing, expiratory+ normal respiratory effort. GI: Abdomen normal to inspection. Soft, non tender, non- distended, no masses, no rebound tenderness or guarding. Bowel sounds active on all four quadrants Genitourinary: Deferred Extremities: No cyanosis, clubbing, or edema. Pulses [2+] bilaterally. Full ROM on all four extremities. No focal weakness appreciated. Neurologic: Alert to person, place, time, and situation. Affect appropriate, intact sensation. Skin: Clean,dry, and intact. No ecchymosis, no rashes, or lesions Results Result Diagram: 10/15/16 1005 10/16/16 0731 Results 24 hrs Laboratory Tests Test 10/15/16 12:36 10/15/16 13:18 10/15/16 15:00 10/15/16 16:14 Bedside Glucose 435 *H 429 *H 546 *H 522 *H Test 10/15/16 17:13 10/15/16 18:34 10/15/16 18:50 10/15/16 21:00 Bedside Glucose 509 *H 507 *H Sodium Level 134 L Potassium Level 5.0 Chloride Level 99 Carbon Dioxide Level 21 Anion Gap 19 H Blood Urea Nitrogen 13 Creatinine 0.57 L Glucose Level 494 *H Calcium Level 7.7 L Phosphorus Level 3.0 Magnesium Level 1.8 Acetone Level (Chemistry) NEGATIVE Free Thyroxine 1.35 Urine Color STRAW Urine Clarity CLEAR Urine pH 6.0 Urine Specific [place] 1.015 Urine Ketones TRACE A Urine Nitrite NEGATIVE Urine Bilirubin NEGATIVE Urine Urobilinogen NEGATIVE Urine Leukocyte Esterase NEGATIVE Urine Hemoglobin NEGATIVE Urine Glucose 3+ H Urine Total Protein NEGATIVE Test 10/15/16 21:08 10/15/16 23:30 10/15/16 23:44 10/16/16 01:35 Bedside Glucose 426 *H 375 H 181 Sodium Level 137 Potassium Level 3.9 Chloride Level 104 Carbon Dioxide Level 22 Anion Gap 15 Blood Urea Nitrogen 13 Creatinine 0.57 L Glucose Level 270 #H Calcium Level 7.8 L Test 10/16/16 04:33 10/16/16 07:31 10/16/16 09:02 Bedside Glucose 114 158 Sodium Level 136 Potassium Level 4.5 Chloride Level 108 Carbon Dioxide Level 22 Anion Gap 11 Blood Urea Nitrogen 13 Creatinine 0.59 L Glucose Level 142 # Calcium Level 7.6 L Total Bilirubin 0.4 Direct Bilirubin 0.00 Indirect Bilirubin 0.4 Aspartate Amino Transf (AST/SGOT) 26 Alanine Aminotransferase (ALT/SGPT) 27 Alkaline Phosphatase 1130 H Total Protein 6.3 Albumin 3.2 L Globulin 3.10 Albumin/Globulin Ratio 1.03 Medications Medications Current Medications Ondansetron HCl (Zofran Tab) 4 mg Q6H PRN PO NAUSEA AND/OR VOMITING; Start at 18:30 Ondansetron HCl (Zofran Inj) 4 mg Q6H PRN IV NAUSEA AND/OR VOMITING; Start at 18:30 Metoclopramide HCl (Reglan) 10 mg Q6H PRN IV NAUSEA AND/OR VOMITING; Start at 18:30 Acetaminophen (Tylenol Tab) 650 mg Q6H PRN PO PAIN LEVEL 1-3 OR FEVER; Start at 18:30 Acetaminophen/ Hydrocodone Bitart ([place] (5/325)) 1 tab Q6H PRN PO PAIN LEVEL 4 -6; Start 10/15/16 at 18:30 Morphine Sulfate (morphine) 2 mg Q4H PRN IV PAIN LEVEL 7-10; Start 10/15/16 at 18:30 Docusate Sodium (Colace) 100 mg Q12H PRN PO CONSTIPATION; Start 10/15/16 at 18: 30 Magnesium Hydroxide (Milk Of Mag) 30 ml DAILY PRN PO CONSTIPATION; Start at 18:30 Bisacodyl (Dulcolax) 5 mg DAILY PRN PO CONSTIPATION; Start 10/15/16 at 18:30 Enoxaparin Sodium (Lovenox) 40 mg DAILY SC Last administered on 10/16/16 09:31 ; Admin Dose 40 MG; Start 10/16/16 at 09:00 Albuterol (Ventolin Hfa) as above Q4 PRN INH SHORTNESS OF BREATH; Start at 18:30 Aspirin (Halfprin) 81 mg AM PO Last administered on 10/16/16 09:26; Admin Dose 81 MG; Start 10/16/16 at 09:00 Furosemide (Lasix) 40 mg DAILY PO Last administered on 10/16/16 09:26; Admin Dose 40 MG; Start 10/16/16 at 09:00 Salmeterol Xinafoate/ Fluticasone (Advair 250/50 Diskus) 1 inh Q12 INH Last administered on 10/16/16 09:24; Admin Dose 1 INH; Start 10/15/16 at 21:00 Terazosin HCl (Hytrin) 2 mg QHS PO Last administered on 10/15/16 20:55; Admin Dose 2 MG; Start 10/15/16 at 21:00 Losartan Potassium (Cozaar) 25 mg DAILY PO Last administered on 10/16/16 09:26 ; Admin Dose 25 MG; Start 10/16/16 at 09:00 Miscellaneous Information 1 ea NOTE XX ; Start 10/15/16 at 19:00 Glucose (Glutose) 15 gm Q15M PRN PO DECREASED GLUCOSE; Start 10/15/16 at 19:00 Glucose (Glutose) 22.5 gm Q15M PRN PO DECREASED GLUCOSE; Start 10/15/16 at 19: 00 Dextrose (D50w Syringe) 25 ml Q15M PRN IV DECREASED GLUCOSE; Start 10/15/16 at 19:00 Dextrose (D50w Syringe) 50 ml Q15M PRN IV DECREASED GLUCOSE; Start 10/15/16 at 19:00 Glucagon (Glucagen) 1 mg Q15M PRN IM DECREASED GLUCOSE; Start 10/15/16 at 19:00 Glucose 15 gm 15 gm Q15M PRN BUCCAL DECREASED GLUCOSE; Start 10/15/16 at 19:00 Sodium Chloride (NS) 1,000 ml @ 100 mls/hr Q10H IV Last administered on 05:38; Admin Dose 100 MLS/HR; Start 10/15/16 at 19:30 Prednisone (Prednisone) 40 mg DAILY PO Last administered on 10/16/16 09:26; Admin Dose 40 MG; Start 10/16/16 at 09:00; Stop 10/19/16 at 10:30 Insulin Glargine (Lantus) 11 unit DAILY@20 SC Last administered on 10/15/16 22 :41; Admin Dose 11 UNIT; Start 10/15/16 at 22:00 Insulin Aspart (Novolog Insulin Pen) NOVOLOG *MODERATE* ALGORI... Q4 SC Last administered on 10/16/16 09:12; Admin Dose 2 UNIT; Start 10/16/16 at 09:00 TAMARA BOURNE NP Oct 16, 2016 10:10
[2016-10-16] MEDS: INSULIN ASPART [NOVOLOG] 3 ML PEN SC SCH ×5 (12:58→21:40)
[2016-10-16] MEDS: HYDROCODONE/APAP (5/325) TAB PO PRN ×2 (13:58→16:44)
[2016-10-16] MEDS: FERROUS SULFATE (EC) 325 MG TAB PO SCH ×2 (14:00→21:29)
--- NOTE | 2016-10-16 18:19 | CONS ---
Date/Time of Note Date/Time of Note DATE: 10/16/16 TIME: 18:13 Assessment/Plan Assessment/Plan Problems: (1) Diabetes mellitus type 2 in nonobese Status: Chronic Comment: Going through the computer records his A1c's have never been below 10. Given his understanding how to use his medications a complicated regimen is probably not his best interest. In addition his insurance is not covering any of the analog insulins. Will transition over to NPH in combination with oral agents and trying fine-tune this. We will have to settle for somewhat poor control as long as we avoid hypoglycemia. I will asked the certified medical assistant see him however has some questions about his gentleman's formalized mental status. (2) Essential hypertension Status: Chronic Comment: Noted. He has adequate control on low-dose H2 receptor oscar agent along with an alpha-oscar. (3) Hyperlipidemia Status: Chronic Comment: As per the primary team to treat with a statin Qualifiers: Qualified Code: E78.00 - Pure hypercholesterolemia (4) BPH (benign prostatic hyperplasia) Status: Chronic Comment: We will check his postvoid residual. I would actively consider removing the Hytrin using Avendaño and visual giving more room to work with the losartan Qualifiers: Qualified Code: N40.0 - Benign prostatic hyperplasia, presence of lower urinary tract symptoms unspecified, unspecified morphology (5) Gastroesophageal reflux disease Status: Chronic Comment: Noted. He is on prophylaxis. He should have the head of the bed elevated all times in case this is part of what exacerbating his respiratory issues Qualifiers: Qualified Code: K21.9 - Gastroesophageal reflux disease, esophagitis presence not specified (6) COPD exacerbation Status: Acute Comment: I would love to see bedside spirometry on this gentleman to no more of the status of his lungs (7) Anemia Status: Acute Comment: This is a curious issue. Formalized workup will need to be undertaken to evaluate this Qualifiers: Qualified Code: D64.9 - Anemia, unspecified type Additional Assessment/Plan Mental status. I would kindly request the primary team to formalized mental status examination of this gentleman to determine whether or not there is an additional diagnosis to be obtained Consultation Date/Type/Reason Admit Date/Time Oct 15, 2016 at 13:31 Date of Consultation: Oct 16, 2016 Type of Consultation: Endocrinology Reason for Consultation Diabetes mellitus type 2 with poor control; A1c 13, and chronically poorly controlled Referring Provider: BENNY GARRETT MD Hx of Present Illness 76-year-old [facility] [place] gentleman who lives with his family. He has had a few admissions over the last several years (3 times in the last 7 years) always sugars and poor control. He is managed at the [facility] and reports he is on NPH insulin and Regular Insulin. Is unable to identify to me the dosing on this medication or how to use it. He is also using metformin at home. He is not able to give meaningful history. Past Medical History BPH; gastroesophageal reflux disease; osteoarthritis; COPD by report Medical History: diabetes, high cholesterol, hypertension Past Surgical History Past Surgical Hx: no surgical history Family History Significant Family History: diabetes Social History Alcohol Use: none Smoking Status: Never smoker Drug Use: none Exam/Review of Systems Vital Signs Vitals Vital Signs Date Time Temp Pulse Resp B/P Pulse Ox O2 Delivery O2 Flow Rate FiO2 10/16/16 16:38 92 10/16/16 15:36 98.3 17 126/58 99 10/15/16 14:48 Nasal Cannula 2.0 Intake and Output 10/15/16 10/15/16 10/16/16 15:00 23:00 07:00 Intake Total 80 ml 2033 ml Output Total 100 ml 650 ml Balance -20 ml 1383 ml Exam Elderly pleasant and dignified [place] gentleman no carina distress. Please see mental status exam Constitutional: alert Eyes: EOMI, nl conjunctiva, nl lids, nl sclera Neck: non-tender, supple Respiratory: clear to auscultation, normal air movement Cardiovascular: nl pulses, regular rate and rhythm Gastrointestinal: nl liver, spleen, non-tender, soft Results Result Diagram: 10/15/16 1005 10/16/16 0731 Results 24 hrs Laboratory Tests Test 10/15/16 18:34 10/15/16 18:50 10/15/16 21:00 10/15/16 21:08 Bedside Glucose 507 *H 426 *H Sodium Level 134 L Potassium Level 5.0 Chloride Level 99 Carbon Dioxide Level 21 Anion Gap 19 H Blood Urea Nitrogen 13 Creatinine 0.57 L Glucose Level 494 *H Calcium Level 7.7 L Phosphorus Level 3.0 Magnesium Level 1.8 Acetone Level (Chemistry) NEGATIVE Free Thyroxine 1.35 Urine Color STRAW Urine Clarity CLEAR Urine pH 6.0 Urine Specific [place] 1.015 Urine Ketones TRACE A Urine Nitrite NEGATIVE Urine Bilirubin NEGATIVE Urine Urobilinogen NEGATIVE Urine Leukocyte Esterase NEGATIVE Urine Hemoglobin NEGATIVE Urine Glucose 3+ H Urine Total Protein NEGATIVE Test 10/15/16 23:30 10/15/16 23:44 10/16/16 01:35 10/16/16 04:33 Bedside Glucose 375 H 181 114 Sodium Level 137 Potassium Level 3.9 Chloride Level 104 Carbon Dioxide Level 22 Anion Gap 15 Blood Urea Nitrogen 13 Creatinine 0.57 L Glucose Level 270 #H Calcium Level 7.8 L Test 10/16/16 07:31 10/16/16 09:02 10/16/16 12:53 10/16/16 17:27 Sodium Level 136 Potassium Level 4.5 Chloride Level 108 Carbon Dioxide Level 22 Anion Gap 11 Blood Urea Nitrogen 13 Creatinine 0.59 L Glucose Level 142 # Hemoglobin A1c 13.0 H Calcium Level 7.6 L Total Bilirubin 0.4 Direct Bilirubin 0.00 Indirect Bilirubin 0.4 Aspartate Amino Transf (AST/SGOT) 26 Alanine Aminotransferase (ALT/SGPT) 27 Alkaline Phosphatase 1130 H Total Protein 6.3 Albumin 3.2 L Globulin 3.10 Albumin/Globulin Ratio 1.03 Bedside Glucose 158 204 288 H Medications Medications Current Medications Ondansetron HCl (Zofran Tab) 4 mg Q6H PRN PO NAUSEA AND/OR VOMITING; Start at 18:30 Ondansetron HCl (Zofran Inj) 4 mg Q6H PRN IV NAUSEA AND/OR VOMITING; Start at 18:30 Metoclopramide HCl (Reglan) 10 mg Q6H PRN IV NAUSEA AND/OR VOMITING; Start at 18:30 Acetaminophen (Tylenol Tab) 650 mg Q6H PRN PO PAIN LEVEL 1-3 OR FEVER; Start at 18:30 Acetaminophen/ Hydrocodone Bitart ([place] (5/325)) 1 tab Q6H PRN PO PAIN LEVEL 4 -6 Last administered on 10/16/16t 13:58; Admin Dose 1 TAB; Start 10/15/16 at 18: 30 Morphine Sulfate (morphine) 2 mg Q4H PRN IV PAIN LEVEL 7-10; Start 10/15/16 at 18:30 Docusate Sodium (Colace) 100 mg Q12H PRN PO CONSTIPATION; Start 10/15/16 at 18: 30 Magnesium Hydroxide (Milk Of Mag) 30 ml DAILY PRN PO CONSTIPATION; Start at 18:30 Bisacodyl (Dulcolax) 5 mg DAILY PRN PO CONSTIPATION; Start 10/15/16 at 18:30 Enoxaparin Sodium (Lovenox) 40 mg DAILY SC Last administered on 10/16/16 09:31 ; Admin Dose 40 MG; Start 10/16/16 at 09:00 Albuterol (Ventolin Hfa) as above Q4 PRN INH SHORTNESS OF BREATH; Start at 18:30 Aspirin (Halfprin) 81 mg AM PO Last administered on 10/16/16 09:26; Admin Dose 81 MG; Start 10/16/16 at 09:00 Furosemide (Lasix) 40 mg DAILY PO Last administered on 10/16/16 09:26; Admin Dose 40 MG; Start 10/16/16 at 09:00 Salmeterol Xinafoate/ Fluticasone (Advair 250/50 Diskus) 1 inh Q12 INH Last administered on 10/16/16 09:24; Admin Dose 1 INH; Start 10/15/16 at 21:00 Terazosin HCl (Hytrin) 2 mg QHS PO Last administered on 10/15/16 20:55; Admin Dose 2 MG; Start 10/15/16 at 21:00 Losartan Potassium (Cozaar) 25 mg DAILY PO Last administered on 10/16/16 09:26 ; Admin Dose 25 MG; Start 10/16/16 at 09:00 Miscellaneous Information 1 ea NOTE XX ; Start 10/15/16 at 19:00 Glucose (Glutose) 15 gm Q15M PRN PO DECREASED GLUCOSE; Start 10/15/16 at 19:00 Glucose (Glutose) 22.5 gm Q15M PRN PO DECREASED GLUCOSE; Start 10/15/16 at 19: 00 Dextrose (D50w Syringe) 25 ml Q15M PRN IV DECREASED GLUCOSE; Start 10/15/16 at 19:00 Dextrose (D50w Syringe) 50 ml Q15M PRN IV DECREASED GLUCOSE; Start 10/15/16 at 19:00 Glucagon (Glucagen) 1 mg Q15M PRN IM DECREASED GLUCOSE; Start 10/15/16 at 19:00 Glucose 15 gm 15 gm Q15M PRN BUCCAL DECREASED GLUCOSE; Start 10/15/16 at 19:00 Sodium Chloride (NS) 1,000 ml @ 100 mls/hr Q10H IV Last administered on 17:35; Admin Dose 100 MLS/HR; Start 10/15/16 at 19:30 Prednisone (Prednisone) 40 mg DAILY PO Last administered on 10/16/16 09:26; Admin Dose 40 MG; Start 10/16/16 at 09:00; Stop 10/19/16 at 10:30 Diagnostic Test (Pha) (Accu-Chek) 1 ea 02 XX ; Start 10/17/16 at 02:00 Ferrous Sulfate (Ferrous Sulfate (Ec)) 325 mg BID PO Last administered on 14:00; Admin Dose 325 MG; Start 10/16/16 at 10:00 Docusate Sodium (Colace) 100 mg BID PO ; Start 10/16/16 at 21:00 Montelukast Sodium (Singulair) 10 mg HS PO ; Start 10/16/16 at 21:00; Status UNV Insulin Human NPH (Humulin N) 11 unit BID@08,20 SC ; Start 10/16/16 at 20:00; Status UNV LADY ESCOBAR MD Oct 16, 2016 18:19
[2016-10-16] MEDS: metFORMIN 500 MG TAB PO SCH (18:53)
[2016-10-16] MEDS: DOCUSATE SODIUM 100 MG CAP PO SCH (21:29)
[2016-10-16] MEDS: TAMSULOSIN (SR) 0.4 MG CAP PO SCH (21:29)
[2016-10-16] MEDS: MONTELUKAST 10 MG TAB PO SCH (21:29)
[2016-10-16] MEDS: NPH, HUMAN INSULIN ISOPHANE 3ML VIAL SC SCH (21:40)
[2016-10-17] VITALS (12 sets, daily range): BP systolic 101–127; BP diastolic 53–58; PULSE 101–120; RESP 18–20
[2016-10-17] MEDS: ACCU-CHEK XX SCH (02:00)
[2016-10-17] MEDS: SOD CHLORIDE 0.9% 1,000 ML IV SCH ×3 (03:44→23:03)
[2016-10-17] MEDS: HYDROCODONE/APAP (5/325) TAB PO PRN (03:57)
[2016-10-17] MEDS ORDERED: INSULIN GLARGINE [LANtus] 3 ML PEN SC SCH (08:00)
[2016-10-17 08:01] LABS: ABNORMAL IP MESSAGE 1; HEMATOCRIT 25.6 % (42.0-52.0); MEAN CORPUSCULAR HEMOGLOBIN 29.2 pg (29.0-33.0); MEAN CORPUSCULAR HGB CONC 31.3 g/dl (32.0-37.0); MEAN CORPUSCULAR VOLUME 93.4 fl (82.0-101.0); NUCLEATED RED BLOOD CELLS% 13.9 /100WBC (0.0-0.0); PLATELET COUNT 214 10^3/UL (140-415); POSITIVE DIFF @See below; RED BLOOD COUNT 2.74 10^6/ul (4.70-6.10); RED CELL DISTRIBUTION WIDTH 19.5 % (11.5-14.5); WHITE BLOOD COUNT 7.6 10^3/ul (4.8-10.8)
[2016-10-17 08:30] LABS: CALCIUM 8.1 mg/dl (8.4-10.2); CREATININE 0.53 mg/dl (0.61-1.24); MAGNESIUM 1.8 mg/dl (1.7-2.5); POTASSIUM 4.3 mmol/L (3.5-5.1)
[2016-10-17] MEDS: FUROSEMIDE 40 MG TAB PO SCH (08:39)
[2016-10-17] MEDS: predniSONE 20 MG TAB PO SCH (08:39)
[2016-10-17] MEDS: ASPIRIN (EC) 81 MG TAB PO SCH (08:39)
[2016-10-17] MEDS: DOCUSATE SODIUM 100 MG CAP PO SCH ×2 (08:39→21:13)
[2016-10-17] MEDS: FERROUS SULFATE (EC) 325 MG TAB PO SCH ×2 (08:39→21:13)
[2016-10-17] MEDS: metFORMIN 500 MG TAB PO SCH ×2 (08:40→17:41)
[2016-10-17] MEDS: LOSARTAN 25 MG TAB PO SCH (08:40)
[2016-10-17] MEDS: INSULIN ASPART [NOVOLOG] 3 ML PEN SC SCH ×7 (08:49→21:35)
[2016-10-17] MEDS: NPH, HUMAN INSULIN ISOPHANE 3ML VIAL SC SCH ×2 (08:50→21:35)
--- NOTE | 2016-10-17 08:56 | RADRPT ---
PROCEDURE: Whole body bone scan study CLINICAL INDICATION: 76 -year-old patient with diffuse sclerotic lesions in the skeleton on the CT scan, for evaluation for skeletal metastases. TECHNIQUE: Following the intravenous injection of 25.9 mCi of Tc-99m MDP, whole body anterior and posterior planar images were obtained along with spot views of the head, neck and chest. COMPARISON: No prior bone scans are available for comparison. CT scan of the chest dated October. FINDINGS: Mildly patchy and heterogeneous distribution of radionuclide is seen in the skeleton, most prominent in the humerus and femur bilaterally. No definite abnormal areas of increased activity or asymmetries are visualized in the study and dist ribution of radionuclide is homogeneous in the skull, spine, rib cages, sternum, pelvis and visualiz ed portions of the upper and lower extremities. Of incidental note, the kidneys are poorly visualized. IMPRESSION: Patchy heterogeneous distribution of radionuclide throughout the entire skeletal system along with a poor visualization of the kidneys likely represents super scan and may be seen in association with diffuse skeletal metastases. RPTAT: HH .Dayana Salgado MD, Date Time Electronically viewed and signed by .Dayana Salgado MD, on 10/16/2016 17:13 .L/
[2016-10-17] MEDS: SALMETEROL/FLUTICASONE 250/50 INHA INH SCH ×2 (09:02→21:12)
[2016-10-17] MEDS: ENOXAPARIN 40 MG/0.4 ML SYG SC SCH (09:05)
[2016-10-17 09:47] LABS: ANISOCYTOSIS 1+ (0-0); BASOPHILS % (M) 2 % (0-2); EOSINOPHILS % (M) 2 % (0-7); ERYTHROBLAST% (NRBC) (M) 14 % (0-0); METAMYELOCYTES %M 1 % (0-0); MICROCYTOSIS 1+ (0-0); MONOCYTES % (M) 7 % (0-11); MYELOCYTES % (M) 2 % (0.0-0.0); OVALOCYTES 1+ (0-0); PLATELET ESTIMATE NORMAL; POLYCHROMASIA 1+ (0-0)
--- NOTE | 2016-10-17 11:38 | PN ---
Date/Time of Note Date/Time of Note DATE: 10/17/16 TIME: 11:38 Assessment/Plan VTE Prophylaxis VTE Prophylaxis Intervention: ambulation, LMWH Lines/Catheters IV Catheter Type (from Nrs): Peripheral IV Assessment/Plan Chief Complaint/Hosp Course 1. COPD exacerbation, resolving Continue [id number] bronchodilators and tapering dose of oral prednisone 2. Uncontrolled Type 2 diabetes, presented with DKA. DKA resolved. A1c 13.2. -Endocrinology evaluation appreciated. -On carb controlled diet, blood glucose monitoring before meals and at bedtime with 11 units NPH twice daily, 5 units insulin aspart pre-meals and insulin sliding scale along with metformin twice daily. 3. Hypertension. Stable -Continue Cozaar 4. BPH -Patient has been started on Flomax. 5. Superscan phenomenon per Bone scan: Rule out diffuse skeletal metastases. -Obtain oncology eval Plan: Monitor blood glucose. Follow-up with endocrinology/oncology recommendation. Start tapering prednisone. I also discussed with patient's son regarding a telemetry psych evaluation for a formal mental status as requested by pen rider. However, at this time they do not want to proceed with the telemetry psych evaluation and will let us know. Patient's neuro status is currently within normal limits. Case discussed with Dr. Doss. Problems: Subjective 24 Hr Interval Summary Free Text/Dictation Patient sitting up in chair. Awake alert oriented 4. No acute overnight episodes Exam/Review of Systems Vital Signs Vitals Vital Signs Date Time Temp Pulse Resp B/P Pulse Ox O2 Delivery O2 Flow Rate FiO2 10/17/16 11:29 98.3 118 19 116/55 100 10/17/16 01:25 3.0 10/15/16 14:48 Nasal Cannula Intake and Output 10/16/16 10/16/16 10/17/16 15:00 23:00 07:00 Intake Total 1700 ml Output Total 850 ml Balance 850 ml Exam General: Elderly male, lying in bed not in any acute distress . HEENT: Normocephalic, Atraumatic, No laceration or hematoma; Eyes: PEERL, Conjunctiva clear, Anicteric sclera Neck: Supple without any lymphadenopathy, nontender, no JVD, no carotid bruits, trachea midline, no thyromegaly Cardiac: S1, S2 auscultated, regular rhythm and rate, no mumurs or gallop Pulmonary: Chest clear to auscultation. Normal respiratory effort. GI: Abdomen normal to inspection. Soft, non tender, non- distended, no masses, no rebound tenderness or guarding. Bowel sounds active on all four quadrants Genitourinary: Deferred Extremities: No cyanosis, clubbing, or edema. Pulses [2+] bilaterally. Full ROM on all four extremities. No focal weakness appreciated. Neurologic: Alert to person, place, time, and situation. Affect appropriate, intact sensation. Skin: Clean,dry, and intact. No ecchymosis, no rashes, or lesions Results Result Diagram: 10/17/16 0707 10/17/16 0654 Results 24 hrs Laboratory Tests Test 10/16/16 12:53 10/16/16 17:27 10/16/16 21:26 10/17/16 03:42 Bedside Glucose 204 288 H 253 H 279 H Test 10/17/16 06:54 10/17/16 07:07 10/17/16 08:34 Sodium Level 136 Potassium Level 4.3 Chloride Level 101 Carbon Dioxide Level 21 Anion Gap 18 #H Blood Urea Nitrogen 12 Creatinine 0.53 L Glucose Level 281 #H Calcium Level 8.1 L Magnesium Level 1.8 White Blood Count 7.6 Red Blood Count 2.74 L Hemoglobin 8.0 L Hematocrit 25.6 L Mean Corpuscular Volume 93.4 Mean Corpuscular Hemoglobin 29.2 Mean Corpuscular Hemoglobin Concent 31.3 L Red Cell Distribution Width 19.5 H Platelet Count 214 Mean Platelet Volume 10.0 Neutrophils % Segmented Neutrophils % (Manual) 47 Band Neutrophils % (Manual) 9 H Lymphocytes % Lymphocytes % (Manual) 30 Monocytes % Monocytes % (Manual) 7 Eosinophils % Eosinophils % (Manual) 2 Basophils % Basophils % (Manual) 2 Metamyelocytes % (manual) 1 H Myelocytes % (Manual) 2 H Nucleated Red Blood Cells % 14 H Neutrophils # (Manual) 3.6 Band Neutrophils # 0.6 Absolute Lymphocytes (Manual) 2.2 Lymphocytes # Monocytes # Absolute Monocytes (Manual) 0.5 Eosinophils # Basophils # Basophils # (Manual) 0.1 H Metamyelocytes # 0.0 Myelocytes # 0.1 H Nucleated Red Blood Cells # Platelet Estimate NORMAL Polychromasia 1+ Anisocytosis 1+ Microcytosis 1+ Ovalocytes 1+ Bedside Glucose 277 H Medications Medications Current Medications Ondansetron HCl (Zofran Tab) 4 mg Q6H PRN PO NAUSEA AND/OR VOMITING; Start at 18:30 Ondansetron HCl (Zofran Inj) 4 mg Q6H PRN IV NAUSEA AND/OR VOMITING; Start at 18:30 Metoclopramide HCl (Reglan) 10 mg Q6H PRN IV NAUSEA AND/OR VOMITING; Start at 18:30 Acetaminophen (Tylenol Tab) 650 mg Q6H PRN PO PAIN LEVEL 1-3 OR FEVER; Start at 18:30 Acetaminophen/ Hydrocodone Bitart ([place] (5/325)) 1 tab Q6H PRN PO PAIN LEVEL 4 -6 Last administered on 10/17/16 03:57; Admin Dose 1 TAB; Start 10/15/16 at 18: 30 Morphine Sulfate (morphine) 2 mg Q4H PRN IV PAIN LEVEL 7-10 Last administered on 10/16/16 21:31; Admin Dose 2 MG; Start 10/15/16 at 18:30 Docusate Sodium (Colace) 100 mg Q12H PRN PO CONSTIPATION; Start 10/15/16 at 18: 30 Magnesium Hydroxide (Milk Of Mag) 30 ml DAILY PRN PO CONSTIPATION; Start at 18:30 Bisacodyl (Dulcolax) 5 mg DAILY PRN PO CONSTIPATION; Start 10/15/16 at 18:30 Enoxaparin Sodium (Lovenox) 40 mg DAILY SC Last administered on 10/17/16 09:05 ; Admin Dose 40 MG; Start 10/16/16 at 09:00 Albuterol (Ventolin Hfa) as above Q4 PRN INH SHORTNESS OF BREATH; Start at 18:30 Aspirin (Halfprin) 81 mg AM PO Last administered on 10/17/16 08:39; Admin Dose 81 MG; Start 10/16/16 at 09:00 Furosemide (Lasix) 40 mg DAILY PO Last administered on 10/17/16 08:39; Admin Dose 40 MG; Start 10/16/16 at 09:00 Salmeterol Xinafoate/ Fluticasone (Advair 250/50 Diskus) 1 inh Q12 INH Last administered on 10/17/16 09:02; Admin Dose 1 INH; Start 10/15/16 at 21:00 Losartan Potassium (Cozaar) 25 mg DAILY PO Last administered on 10/17/16 08:40 ; Admin Dose 25 MG; Start 10/16/16 at 09:00 Miscellaneous Information 1 ea NOTE XX ; Start 10/15/16 at 19:00 Glucose (Glutose) 15 gm Q15M PRN PO DECREASED GLUCOSE; Start 10/15/16 at 19:00 Glucose (Glutose) 22.5 gm Q15M PRN PO DECREASED GLUCOSE; Start 10/15/16 at 19: 00 Dextrose (D50w Syringe) 25 ml Q15M PRN IV DECREASED GLUCOSE; Start 10/15/16 at 19:00 Dextrose (D50w Syringe) 50 ml Q15M PRN IV DECREASED GLUCOSE; Start 10/15/16 at 19:00 Glucagon (Glucagen) 1 mg Q15M PRN IM DECREASED GLUCOSE; Start 10/15/16 at 19:00 Glucose 15 gm 15 gm Q15M PRN BUCCAL DECREASED GLUCOSE; Start 10/15/16 at 19:00 Sodium Chloride (NS) 1,000 ml @ 100 mls/hr Q10H IV Last administered on 03:44; Admin Dose 100 MLS/HR; Start 10/15/16 at 19:30 Prednisone (Prednisone) 40 mg DAILY PO Last administered on 10/17/16 08:39; Admin Dose 40 MG; Start 10/16/16 at 09:00; Stop 10/19/16 at 10:30 Diagnostic Test (Pha) (Accu-Chek) 1 ea 02 XX ; Start 10/17/16 at 02:00 Ferrous Sulfate (Ferrous Sulfate (Ec)) 325 mg BID PO Last administered on 08:39; Admin Dose 325 MG; Start 10/16/16 at 10:00 Docusate Sodium (Colace) 100 mg BID PO Last administered on 10/17/16 08:39; Admin Dose 100 MG; Start 10/16/16 at 21:00 Montelukast Sodium (Singulair) 10 mg HS PO Last administered on 10/16/16 21:29 ; Admin Dose 10 MG; Start 10/16/16 at 21:00 Insulin Human NPH (Humulin N) 11 unit BID@08,20 SC Last administered on 08:50; Admin Dose 11 UNIT; Start 10/16/16 at 20:00 Tamsulosin HCl (Flomax) 0.4 mg HS PO Last administered on 10/16/16 21:29; Admin Dose 0.4 MG; Start 10/16/16 at 21:00 TAMARA BOURNE NP Oct 17, 2016 11:38
--- NOTE | 2016-10-17 18:08 | CONS ---
Date/Time of Note Date/Time of Note DATE: 10/17/16 TIME: 17:49 Assessment/Plan Assessment/Plan Chief Complaint/Hosp Course 76 yo with #Diffuse osseous mets - seen on CT scan and bone scan. This in conjunction with markedly elevated Alk phos makes underlying malignancy highly probable -will check PSA -check SPEP to evaluate for underlying multiple myeloma -if the above studies are not conclusive, will need to perform a bone bx to obtain a diagnosis #SOB -2/2 COPD exacerbation -pt SOB has currently improved -continue bronchodilators and steroids as ordered #DKA/ uncontrolled DM -BS currently controlled -appreciate endocrinology recs Problems: Consultation Date/Type/Reason Admit Date/Time Oct 15, 2016 at 13:31 Date of Consultation: Oct 17, 2016 Type of Consultation: oncology Reason for Consultation metastatic bone cancer Referring Provider: TAMARA BOURNE V. [employer] Hx of Present Illness 76 yo with multiple medical problems including with pmhx COPD, HTN, BPH, DM2 who presents to [facility] with SOB. She endorses these sx for the past 3 years but states they have acutely gotten worse. Pt also reports decreased appetite and decreased PO intake and 20 pounds weight loss in the past month. Pt also c/o diffuse bone pain. Given the initial sx of SOB pt had a CT Chest done which demonstrated sclerotic appearance of the entirety the osseous structures of the thorax concerning for osseous mets. This was followed up with a bone scan that revealed patchy heterogeneous distribution of radionuclide throughout the entire skeletal system concerning for diffuse skeletal metastasis. Labs reveal a markedly elevated alk phos of > 1100. Pt does endorse sx of BPH but denies history of prostate cancer. We have been consulted for further workup. Eyes: no complaints ENT: no complaints Respiratory: shortness of breath Cardiovascular: no complaints Gastrointestinal: no complaints Genitourinary: no complaints Musculoskeletal: no complaints Past Medical History COPD, HTN, BPH, DM2 Medical History: diabetes, high cholesterol, hypertension Past Surgical History Past Surgical Hx: no surgical history Family History Significant Family History: no pertinent family hx Social History Alcohol Use: none Smoking Status: Never smoker Drug Use: none Exam/Review of Systems Vital Signs Vitals Vital Signs Date Time Temp Pulse Resp B/P Pulse Ox O2 Delivery O2 Flow Rate FiO2 10/17/16 16:07 120 10/17/16 16:02 98.3 18 101/54 99 10/17/16 01:25 3.0 10/15/16 14:48 Nasal Cannula Intake and Output 10/16/16 10/16/16 10/17/16 15:00 23:00 07:00 Intake Total 1700 ml Output Total 850 ml Balance 850 ml Exam Constitutional: alert, oriented Psych: nl mood/affect, no complaints Head: normocephalic Eyes: nl conjunctiva ENMT: nl external ears & nose Neck: non-tender, supple Respiratory: clear to auscultation, normal air movement Cardiovascular: regular rate and rhythm Gastrointestinal: soft Musculoskeletal: nl extremities to inspection Results Result Diagram: 10/17/16 0707 10/17/16 0654 Results 24 hrs Laboratory Tests Test 10/16/16 21:26 10/17/16 03:42 10/17/16 06:54 10/17/16 07:07 Bedside Glucose 253 H 279 H Sodium Level 136 Potassium Level 4.3 Chloride Level 101 Carbon Dioxide Level 21 Anion Gap 18 #H Blood Urea Nitrogen 12 Creatinine 0.53 L Glucose Level 281 #H Calcium Level 8.1 L Magnesium Level 1.8 White Blood Count 7.6 Red Blood Count 2.74 L Hemoglobin 8.0 L Hematocrit 25.6 L Mean Corpuscular Volume 93.4 Mean Corpuscular Hemoglobin 29.2 Mean Corpuscular Hemoglobin Concent 31.3 L Red Cell Distribution Width 19.5 H Platelet Count 214 Mean Platelet Volume 10.0 Neutrophils % Segmented Neutrophils % (Manual) 47 Band Neutrophils % (Manual) 9 H Lymphocytes % Lymphocytes % (Manual) 30 Monocytes % Monocytes % (Manual) 7 Eosinophils % Eosinophils % (Manual) 2 Basophils % Basophils % (Manual) 2 Metamyelocytes % (manual) 1 H Myelocytes % (Manual) 2 H Nucleated Red Blood Cells % 14 H Neutrophils # (Manual) 3.6 Band Neutrophils # 0.6 Absolute Lymphocytes (Manual) 2.2 Lymphocytes # Monocytes # Absolute Monocytes (Manual) 0.5 Eosinophils # Basophils # Basophils # (Manual) 0.1 H Metamyelocytes # 0.0 Myelocytes # 0.1 H Nucleated Red Blood Cells # Platelet Estimate NORMAL Polychromasia 1+ Anisocytosis 1+ Microcytosis 1+ Ovalocytes 1+ Test 10/17/16 08:34 10/17/16 12:46 10/17/16 17:21 Bedside Glucose 277 H 278 H 251 H Medications Medications Current Medications Ondansetron HCl (Zofran Tab) 4 mg Q6H PRN PO NAUSEA AND/OR VOMITING; Start at 18:30 Ondansetron HCl (Zofran Inj) 4 mg Q6H PRN IV NAUSEA AND/OR VOMITING; Start at 18:30 Metoclopramide HCl (Reglan) 10 mg Q6H PRN IV NAUSEA AND/OR VOMITING; Start at 18:30 Acetaminophen (Tylenol Tab) 650 mg Q6H PRN PO PAIN LEVEL 1-3 OR FEVER; Start at 18:30 Acetaminophen/ Hydrocodone Bitart ([place] (5/325)) 1 tab Q6H PRN PO PAIN LEVEL 4 -6 Last administered on 10/17/16 03:57; Admin Dose 1 TAB; Start 10/15/16 at 18: 30 Morphine Sulfate (morphine) 2 mg Q4H PRN IV PAIN LEVEL 7-10 Last administered on 10/16/16 21:31; Admin Dose 2 MG; Start 10/15/16 at 18:30 Docusate Sodium (Colace) 100 mg Q12H PRN PO CONSTIPATION; Start 10/15/16 at 18: 30 Magnesium Hydroxide (Milk Of Mag) 30 ml DAILY PRN PO CONSTIPATION; Start at 18:30 Bisacodyl (Dulcolax) 5 mg DAILY PRN PO CONSTIPATION; Start 10/15/16 at 18:30 Enoxaparin Sodium (Lovenox) 40 mg DAILY SC Last administered on 10/17/16 09:05 ; Admin Dose 40 MG; Start 10/16/16 at 09:00 Albuterol (Ventolin Hfa) as above Q4 PRN INH SHORTNESS OF BREATH; Start at 18:30 Aspirin (Halfprin) 81 mg AM PO Last administered on 10/17/16 08:39; Admin Dose 81 MG; Start 10/16/16 at 09:00 Furosemide (Lasix) 40 mg DAILY PO Last administered on 10/17/16 08:39; Admin Dose 40 MG; Start 10/16/16 at 09:00 Salmeterol Xinafoate/ Fluticasone (Advair 250/50 Diskus) 1 inh Q12 INH Last administered on 10/17/16 09:02; Admin Dose 1 INH; Start 10/15/16 at 21:00 Losartan Potassium (Cozaar) 25 mg DAILY PO Last administered on 10/17/16 08:40 ; Admin Dose 25 MG; Start 10/16/16 at 09:00 Miscellaneous Information 1 ea NOTE XX ; Start 10/15/16 at 19:00 Glucose (Glutose) 15 gm Q15M PRN PO DECREASED GLUCOSE; Start 10/15/16 at 19:00 Glucose (Glutose) 22.5 gm Q15M PRN PO DECREASED GLUCOSE; Start 10/15/16 at 19: 00 Dextrose (D50w Syringe) 25 ml Q15M PRN IV DECREASED GLUCOSE; Start 10/15/16 at 19:00 Dextrose (D50w Syringe) 50 ml Q15M PRN IV DECREASED GLUCOSE; Start 10/15/16 at 19:00 Glucagon (Glucagen) 1 mg Q15M PRN IM DECREASED GLUCOSE; Start 10/15/16 at 19:00 Glucose 15 gm 15 gm Q15M PRN BUCCAL DECREASED GLUCOSE; Start 10/15/16 at 19:00 Sodium Chloride (NS) 1,000 ml @ 100 mls/hr Q10H IV Last administered on 13:09; Admin Dose 100 MLS/HR; Start 10/15/16 at 19:30 Diagnostic Test (Pha) (Accu-Chek) 1 ea 02 XX ; Start 10/17/16 at 02:00 Ferrous Sulfate (Ferrous Sulfate (Ec)) 325 mg BID PO Last administered on 08:39; Admin Dose 325 MG; Start 10/16/16 at 10:00 Docusate Sodium (Colace) 100 mg BID PO Last administered on 10/17/16 08:39; Admin Dose 100 MG; Start 10/16/16 at 21:00 Montelukast Sodium (Singulair) 10 mg HS PO Last administered on 10/16/16 21:29 ; Admin Dose 10 MG; Start 10/16/16 at 21:00 Insulin Human NPH (Humulin N) 11 unit BID@08,20 SC Last administered on 08:50; Admin Dose 11 UNIT; Start 10/16/16 at 20:00 Tamsulosin HCl (Flomax) 0.4 mg HS PO Last administered on 10/16/16t 21:29; Admin Dose 0.4 MG; Start 10/16/16 at 21:00 Prednisone (Prednisone) 20 mg DAILY PO ; Start 10/18/16 at 09:00 REBECCA DAUGHERTY M.D. Oct 17, 2016 18:00
--- NOTE | 2016-10-17 18:19 | CONS ---
Date/Time of Note Date/Time of Note DATE: 10/17/16 TIME: 18:17 Assessment/Plan Assessment/Plan Chief Complaint/Hosp Course 76-year-old [place] gentleman who lives with his family. He has had a few admissions over the last several years (3 times in the last 7 years) always sugars and poor control. He is managed at the [facility] and reports he is on NPH insulin and Regular Insulin. Is unable to identify to me the dosing on this medication or how to use it. He is also using metformin at home. He is not able to give meaningful history. Problems: (1) Diabetes mellitus type 2 in nonobese Status: Chronic Comment: His control is poor. I will can continue to adjust the NPH insulin for simplicity sake. I am informed that basically are is actually on his formulary however the co-pays and unknown and I have been burned on this before (2) Essential hypertension Status: Chronic Comment: Adequate control (3) Hyperlipidemia Status: Chronic Comment: Noted. Qualifiers: Hyperlipidemia type: pure hypercholesterolemia Qualified Code: E78.00 - Pure hypercholesterolemia (4) Abnormal radionuclide bone scan Status: Acute Comment: I have not directly compared the [place] radiographs however the bone scan significantly abnormal and suggestive of a rather significant mitotic process. Workup is in progress. (5) BPH (benign prostatic hyperplasia) Status: Chronic Comment: Noted. May be a consideration check his PSA Qualifiers: Prostatic enlargement morphology: unspecified morphology Lower urinary tract symptom presence: presence of symptoms unspecified Qualified Code: N40.0 - Benign prostatic hyperplasia, presence of lower urinary tract symptoms unspecified, unspecified morphology (6) COPD exacerbation Status: Acute Comment: Coming under control nicely please consider tapering the steroids Consultation Date/Type/Reason Admit Date/Time Oct 15, 2016 at 13:31 Initial Consult Date 10/17/16 Type of Consultation: Endocrinology Reason for Consultation Diabetes mellitus type 2 with chronically poor control Referring Provider: TAMARA BOURNE NP 24 HR Interval Summary Constitutional: no complaints Detailed Summary Respiratory: no complaints Cardiovascular: no complaints Musculoskeletal: no complaints (Specifically denies any arm pain or leg pain but does complain of some upper back pain) Exam/Review of Systems Vital Signs Vitals Vital Signs Date Time Temp Pulse Resp B/P Pulse Ox O2 Delivery O2 Flow Rate FiO2 10/17/16 16:07 120 10/17/16 16:02 98.3 18 101/54 99 10/17/16 01:25 3.0 10/15/16 14:48 Nasal Cannula Intake and Output 10/16/16 10/16/16 10/17/16 15:00 23:00 07:00 Intake Total 1700 ml Output Total 850 ml Balance 850 ml Results No changes in exam Result Diagram: 10/17/16 0707 10/17/16 0654 Results 24 hrs Laboratory Tests Test 10/16/16 21:26 10/17/16 03:42 10/17/16 06:54 10/17/16 07:07 Bedside Glucose 253 H 279 H Sodium Level 136 Potassium Level 4.3 Chloride Level 101 Carbon Dioxide Level 21 Anion Gap 18 #H Blood Urea Nitrogen 12 Creatinine 0.53 L Glucose Level 281 #H Calcium Level 8.1 L Magnesium Level 1.8 White Blood Count 7.6 Red Blood Count 2.74 L Hemoglobin 8.0 L Hematocrit 25.6 L Mean Corpuscular Volume 93.4 Mean Corpuscular Hemoglobin 29.2 Mean Corpuscular Hemoglobin Concent 31.3 L Red Cell Distribution Width 19.5 H Platelet Count 214 Mean Platelet Volume 10.0 Neutrophils % Segmented Neutrophils % (Manual) 47 Band Neutrophils % (Manual) 9 H Lymphocytes % Lymphocytes % (Manual) 30 Monocytes % Monocytes % (Manual) 7 Eosinophils % Eosinophils % (Manual) 2 Basophils % Basophils % (Manual) 2 Metamyelocytes % (manual) 1 H Myelocytes % (Manual) 2 H Nucleated Red Blood Cells % 14 H Neutrophils # (Manual) 3.6 Band Neutrophils # 0.6 Absolute Lymphocytes (Manual) 2.2 Lymphocytes # Monocytes # Absolute Monocytes (Manual) 0.5 Eosinophils # Basophils # Basophils # (Manual) 0.1 H Metamyelocytes # 0.0 Myelocytes # 0.1 H Nucleated Red Blood Cells # Platelet Estimate NORMAL Polychromasia 1+ Anisocytosis 1+ Microcytosis 1+ Ovalocytes 1+ Test 10/17/16 08:34 10/17/16 12:46 10/17/16 17:21 Bedside Glucose 277 H 278 H 251 H Medications Medications Current Medications Ondansetron HCl (Zofran Tab) 4 mg Q6H PRN PO NAUSEA AND/OR VOMITING; Start at 18:30 Ondansetron HCl (Zofran Inj) 4 mg Q6H PRN IV NAUSEA AND/OR VOMITING; Start at 18:30 Metoclopramide HCl (Reglan) 10 mg Q6H PRN IV NAUSEA AND/OR VOMITING; Start at 18:30 Acetaminophen (Tylenol Tab) 650 mg Q6H PRN PO PAIN LEVEL 1-3 OR FEVER; Start at 18:30 Acetaminophen/ Hydrocodone Bitart ([place] (5/325)) 1 tab Q6H PRN PO PAIN LEVEL 4 -6 Last administered on 10/17/16 03:57; Admin Dose 1 TAB; Start 10/15/16 at 18: 30 Morphine Sulfate (morphine) 2 mg Q4H PRN IV PAIN LEVEL 7-10 Last administered on 10/16/16 21:31; Admin Dose 2 MG; Start 10/15/16 at 18:30 Docusate Sodium (Colace) 100 mg Q12H PRN PO CONSTIPATION; Start 10/15/16 at 18: 30 Magnesium Hydroxide (Milk Of Mag) 30 ml DAILY PRN PO CONSTIPATION; Start at 18:30 Bisacodyl (Dulcolax) 5 mg DAILY PRN PO CONSTIPATION; Start 10/15/16 at 18:30 Enoxaparin Sodium (Lovenox) 40 mg DAILY SC Last administered on 10/17/16 09:05 ; Admin Dose 40 MG; Start 10/16/16 at 09:00 Albuterol (Ventolin Hfa) as above Q4 PRN INH SHORTNESS OF BREATH; Start at 18:30 Aspirin (Halfprin) 81 mg AM PO Last administered on 10/17/16 08:39; Admin Dose 81 MG; Start 10/16/16 at 09:00 Furosemide (Lasix) 40 mg DAILY PO Last administered on 10/17/16 08:39; Admin Dose 40 MG; Start 10/16/16 at 09:00 Salmeterol Xinafoate/ Fluticasone (Advair 250/50 Diskus) 1 inh Q12 INH Last administered on 10/17/16 09:02; Admin Dose 1 INH; Start 10/15/16 at 21:00 Losartan Potassium (Cozaar) 25 mg DAILY PO Last administered on 10/17/16 08:40 ; Admin Dose 25 MG; Start 10/16/16 at 09:00 Miscellaneous Information 1 ea NOTE XX ; Start 10/15/16 at 19:00 Glucose (Glutose) 15 gm Q15M PRN PO DECREASED GLUCOSE; Start 10/15/16 at 19:00 Glucose (Glutose) 22.5 gm Q15M PRN PO DECREASED GLUCOSE; Start 10/15/16 at 19: 00 Dextrose (D50w Syringe) 25 ml Q15M PRN IV DECREASED GLUCOSE; Start 10/15/16 at 19:00 Dextrose (D50w Syringe) 50 ml Q15M PRN IV DECREASED GLUCOSE; Start 10/15/16 at 19:00 Glucagon (Glucagen) 1 mg Q15M PRN IM DECREASED GLUCOSE; Start 10/15/16 at 19:00 Glucose 15 gm 15 gm Q15M PRN BUCCAL DECREASED GLUCOSE; Start 10/15/16 at 19:00 Sodium Chloride (NS) 1,000 ml @ 100 mls/hr Q10H IV Last administered on 13:09; Admin Dose 100 MLS/HR; Start 10/15/16 at 19:30 Diagnostic Test (Pha) (Accu-Chek) 1 ea 02 XX ; Start 10/17/16 at 02:00 Ferrous Sulfate (Ferrous Sulfate (Ec)) 325 mg BID PO Last administered on 08:39; Admin Dose 325 MG; Start 10/16/16 at 10:00 Docusate Sodium (Colace) 100 mg BID PO Last administered on 10/17/16 08:39; Admin Dose 100 MG; Start 10/16/16 at 21:00 Montelukast Sodium (Singulair) 10 mg HS PO Last administered on 10/16/16 21:29 ; Admin Dose 10 MG; Start 10/16/16 at 21:00 Insulin Human NPH (Humulin N) 11 unit BID@08,20 SC Last administered on 08:50; Admin Dose 11 UNIT; Start 10/16/16 at 20:00 Tamsulosin HCl (Flomax) 0.4 mg HS PO Last administered on 10/16/16 21:29; Admin Dose 0.4 MG; Start 10/16/16 at 21:00 Prednisone (Prednisone) 20 mg DAILY PO ; Start 10/18/16 at 09:00 LADY ESCOBAR MD Oct 17, 2016 18:19
[2016-10-17] MEDS: TAMSULOSIN (SR) 0.4 MG CAP PO SCH (21:13)
[2016-10-17] MEDS: MONTELUKAST 10 MG TAB PO SCH (21:32)
[2016-10-18] VITALS (12 sets, daily range): BP systolic 117–133; BP diastolic 56–63; PULSE 87–107; RESP 16–19
[2016-10-18] MEDS ORDERED: INSULIN ASPART [NOVOLOG] 3 ML PEN SC ONE ×2
[2016-10-18] MEDS ORDERED: NPH, HUMAN INSULIN ISOPHANE 3ML VIAL SC ONE (01:00)
[2016-10-18] MEDS: ACCU-CHEK XX SCH (02:00)
[2016-10-18 07:55] LABS: CALCIUM 7.9 mg/dl (8.4-10.2); CREATININE 0.49 mg/dl (0.61-1.24)
[2016-10-18] MEDS ORDERED: NPH, HUMAN INSULIN ISOPHANE 3ML VIAL SC SCH (08:00)
[2016-10-18] MEDS: metFORMIN 500 MG TAB PO SCH ×2 (08:00→17:38)
[2016-10-18] MEDS: FERROUS SULFATE (EC) 325 MG TAB PO SCH ×2 (08:16→20:17)
[2016-10-18] MEDS: LOSARTAN 25 MG TAB PO SCH (08:16)
[2016-10-18] MEDS: DOCUSATE SODIUM 100 MG CAP PO SCH ×2 (08:16→20:17)
[2016-10-18] MEDS: ENOXAPARIN 40 MG/0.4 ML SYG SC SCH (08:17)
[2016-10-18] MEDS: FUROSEMIDE 40 MG TAB PO SCH (08:17)
[2016-10-18] MEDS: ASPIRIN (EC) 81 MG TAB PO SCH (08:17)
[2016-10-18] MEDS: SALMETEROL/FLUTICASONE 250/50 INHA INH SCH ×2 (08:18→20:17)
[2016-10-18] MEDS: INSULIN ASPART [NOVOLOG] 3 ML PEN SC SCH ×8 (08:19→20:24)
[2016-10-18] MEDS ORDERED: SOD CHLORIDE 0.9% 500 ML ONE (08:51)
[2016-10-18] MEDS ORDERED: MIDAZOLAM 1 MG/ML 2 ML INJ ONE (08:51)
[2016-10-18] MEDS ORDERED: FENTAnyl 50 MCG/ML VIAL ONE ×2 (08:51→10:25)
[2016-10-18] MEDS ORDERED: LIDOCAINE 1% (MDV) 20 ML INJ ONE (08:51)
[2016-10-18] MEDS ORDERED: predniSONE 20 MG TAB PO SCH (09:00)
--- NOTE | 2016-10-18 10:43 | RADRPT ---
PROCEDURE: CT-guided bone marrow biopsy CLINICAL INDICATION: Blood disorder DLP: 305.76 mGy-cm CTDIvol: 8.79 mGy One or more of the following dose reduction techniques were used: - Automated exposure control. - Adjustment of the mA and/or kV according to patient size. - Use of iterative reconstruction technique. TECHNIQUE: Informed consent was obtained from the patient following careful explanation of the risks and benefi ts of the procedure. Versed and Fentanyl were administered by the nurse who monitored the patient. The patient was placed prone on the CT table and multiple axial images were obtained through the pel vis. A site in the patient's skin was selected and marked. The area was prepped and draped in the u sual sterile fashion. 1% lidocaine with lidocaine was utilized for local anesthesia. Under direct CT guidance, a 17 Ga needle was advanced into the left ischial bone. No marrow was ab le to be aspirated consistent with a dry tap. A core bone biopsy was then obtained with the needle and submitted to the pathologist. The needle was then removed and pressure held until hemostasis wa s achieved. The patient tolerated the procedure well. COMPARISON: None FINDINGS: As above. IMPRESSION: CT guided bone biopsy via the left ischial bone. No marrow blood was aspirated consistent with a dry tap. RPTAT: AA Physician Jose Alberto Date Time Electronically viewed and signed by Physician Jose Alberto on 10/18/2016 10:43 RA/
--- NOTE | 2016-10-18 12:01 | PN ---
Date/Time of Note Date/Time of Note DATE: 10/18/16 TIME: 12:01 Assessment/Plan VTE Prophylaxis VTE Prophylaxis Intervention: SCD's Lines/Catheters IV Catheter Type (from Nrs): Peripheral IV Assessment/Plan Chief Complaint/Hosp Course 1. COPD exacerbation, resolved Continue [id number] bronchodilators and prednisone which we are tapering off now. 2. Uncontrolled Type 2 diabetes, presented with DKA. DKA resolved. A1c 13.2. Now with better glycemic control. -Endocrinology evaluation appreciated. -On carb controlled diet, blood glucose monitoring before meals and at bedtime with 11 units NPH twice daily, 5 units insulin aspart pre-meals and insulin sliding scale along with metformin twice daily. 3. Diffuse osseous metastasis as seen on CT and bone scan. -Oncology evaluation appreciated, patient is status post bone marrow biopsy and we will follow-up with findings. 4. Hypertension. Stable -Continue Cozaar 5. BPH -Patient has been started on Flomax. Plan: Follow-up with endocrinology/oncology recommendation. Start tapering prednisone. Discharge planning once cleared from oncology. Case discussed with Dr. Doss. Problems: Subjective 24 Hr Interval Summary Free Text/Dictation Patient awake and oriented. No acute episodes. No wheezing or difficulty breathing. Exam/Review of Systems Vital Signs Vitals Vital Signs Date Time Temp Pulse Resp B/P Pulse Ox O2 Delivery O2 Flow Rate FiO2 10/18/16 11:58 97.7 94 17 121/58 99 10/18/16 06:07 2.0 10/15/16 14:48 Nasal Cannula Intake and Output 10/17/16 10/17/16 10/18/16 15:00 23:00 07:00 Intake Total 650 ml 300 ml Output Total 825 ml Balance 650 ml -525 ml Exam General: Elderly male, lying in bed not in any acute distress . HEENT: Normocephalic, Atraumatic, No laceration or hematoma; Eyes: PEERL, Conjunctiva clear, Anicteric sclera Neck: Supple without any lymphadenopathy, nontender, no JVD, no carotid bruits, trachea midline, no thyromegaly Cardiac: S1, S2 auscultated, regular rhythm and rate, no mumurs or gallop Pulmonary: Chest clear to auscultation. Normal respiratory effort. GI: Abdomen normal to inspection. Soft, non tender, non- distended, no masses, no rebound tenderness or guarding. Bowel sounds active on all four quadrants Genitourinary: Deferred Extremities: No cyanosis, clubbing, or edema. Pulses [2+] bilaterally. Full ROM on all four extremities. No focal weakness appreciated. Neurologic: Alert to person, place, time, and situation. Affect appropriate, intact sensation. Skin: Clean,dry, and intact. No ecchymosis, no rashes, or lesions Results Result Diagram: 10/17/16 0707 10/18/16 0715 Results 24 hrs Laboratory Tests Test 10/17/16 12:46 10/17/16 17:21 10/17/16 21:11 10/18/16 02:47 Bedside Glucose 278 H 251 H 282 H 258 H Test 10/18/16 07:15 10/18/16 08:09 10/18/16 11:29 Sodium Level 138 Potassium Level 4.0 Chloride Level 105 Carbon Dioxide Level 23 Anion Gap 14 Blood Urea Nitrogen 10 Creatinine 0.49 L Glucose Level 226 H Calcium Level 7.9 L Bedside Glucose 243 H 109 Medications Medications Current Medications Ondansetron HCl (Zofran Tab) 4 mg Q6H PRN PO NAUSEA AND/OR VOMITING; Start at 18:30 Ondansetron HCl (Zofran Inj) 4 mg Q6H PRN IV NAUSEA AND/OR VOMITING; Start at 18:30 Metoclopramide HCl (Reglan) 10 mg Q6H PRN IV NAUSEA AND/OR VOMITING; Start at 18:30 Acetaminophen (Tylenol Tab) 650 mg Q6H PRN PO PAIN LEVEL 1-3 OR FEVER; Start at 18:30 Acetaminophen/ Hydrocodone Bitart ([place] (5/325)) 1 tab Q6H PRN PO PAIN LEVEL 4 -6 Last administered on 10/17/16 03:57; Admin Dose 1 TAB; Start 10/15/16 at 18: 30 Morphine Sulfate (morphine) 2 mg Q4H PRN IV PAIN LEVEL 7-10 Last administered on 10/16/16 21:31; Admin Dose 2 MG; Start 10/15/16 at 18:30 Docusate Sodium (Colace) 100 mg Q12H PRN PO CONSTIPATION; Start 10/15/16 at 18: 30 Magnesium Hydroxide (Milk Of Mag) 30 ml DAILY PRN PO CONSTIPATION; Start at 18:30 Bisacodyl (Dulcolax) 5 mg DAILY PRN PO CONSTIPATION; Start 10/15/16 at 18:30 Enoxaparin Sodium (Lovenox) 40 mg DAILY SC Last administered on 10/17/16 09:05 ; Admin Dose 40 MG; Start 10/16/16 at 09:00 Albuterol (Ventolin Hfa) as above Q4 PRN INH SHORTNESS OF BREATH; Start at 18:30 Aspirin (Halfprin) 81 mg AM PO Last administered on 10/17/16 08:39; Admin Dose 81 MG; Start 10/16/16 at 09:00 Furosemide (Lasix) 40 mg DAILY PO Last administered on 10/17/16 08:39; Admin Dose 40 MG; Start 10/16/16 at 09:00 Salmeterol Xinafoate/ Fluticasone (Advair 250/50 Diskus) 1 inh Q12 INH Last administered on 10/18/16 08:18; Admin Dose 1 INH; Start 10/15/16 at 21:00 Losartan Potassium (Cozaar) 25 mg DAILY PO Last administered on 10/17/16 08:40 ; Admin Dose 25 MG; Start 10/16/16 at 09:00 Miscellaneous Information 1 ea NOTE XX ; Start 10/15/16 at 19:00 Glucose (Glutose) 15 gm Q15M PRN PO DECREASED GLUCOSE; Start 10/15/16 at 19:00 Glucose (Glutose) 22.5 gm Q15M PRN PO DECREASED GLUCOSE; Start 10/15/16 at 19: 00 Dextrose (D50w Syringe) 25 ml Q15M PRN IV DECREASED GLUCOSE; Start 10/15/16 at 19:00 Dextrose (D50w Syringe) 50 ml Q15M PRN IV DECREASED GLUCOSE; Start 10/15/16 at 19:00 Glucagon (Glucagen) 1 mg Q15M PRN IM DECREASED GLUCOSE; Start 10/15/16 at 19:00 Glucose (Glutose) 15 gm Q15M PRN BUCCAL DECREASED GLUCOSE; Start 10/15/16 at 19 :00 Diagnostic Test (Pha) (Accu-Chek) 1 ea 02 XX ; Start 10/17/16 at 02:00 Ferrous Sulfate (Ferrous Sulfate (Ec)) 325 mg BID PO Last administered on 21:13; Admin Dose 325 MG; Start 10/16/16 at 10:00 Docusate Sodium (Colace) 100 mg BID PO Last administered on 10/17/16 21:13; Admin Dose 100 MG; Start 10/16/16 at 21:00 Montelukast Sodium (Singulair) 10 mg HS PO Last administered on 10/17/16 21:32 ; Admin Dose 10 MG; Start 10/16/16 at 21:00 Tamsulosin HCl (Flomax) 0.4 mg HS PO Last administered on 10/17/16 21:13; Admin Dose 0.4 MG; Start 10/16/16 at 21:00 Prednisone (Prednisone) 20 mg DAILY PO Last administered on 10/18/16 11:46; Admin Dose 20 MG; Start 10/18/16 at 09:00 Insulin Human NPH (Humulin N) 14 unit BID@08,20 SC Last administered on 08:22; Admin Dose 14 UNIT; Start 10/18/16 at 08:00 TAMARA BOURNE NP Oct 18, 2016 12:01
--- NOTE | 2016-10-18 18:01 | CONS ---
Date/Time of Note Date/Time of Note DATE: 10/18/16 TIME: 17:59 Assessment/Plan Assessment/Plan Chief Complaint/Hosp Course 76-year-old [place] gentleman who lives with his family. He has had a few admissions over the last several years (3 times in the last 7 years) always sugars with poor control. He is managed at the [facility] and reports he is on NPH insulin and Regular Insulin. Is unable to identify to me the dosing on this medication or how to use it. He is also using metformin at home. Problems: (1) Abnormal radionuclide bone scan Status: Acute Comment: Patient status post bone marrow biopsy the results are pending. Long- term planning and goals will be modulated by this (2) Diabetes mellitus type 2 in nonobese Status: Chronic Comment: His sugar control is actually come rather tightly under control. We did back off his insulin as we backed off on the steroid dosing. Consultation Date/Type/Reason Admit Date/Time Oct 15, 2016 at 13:31 Initial Consult Date 10/17/16 Type of Consultation: Endocrinology Reason for Consultation Diabetes mellitus type 2 with chronic poor control Referring Provider: TAMARA BOURNE NP 24 HR Interval Summary Free Text/Dictation Patient is without changes. No new complaints. He has had a bone marrow biopsy for further evaluation of his abnormal imaging studies Exam/Review of Systems Vital Signs Vitals Vital Signs Date Time Temp Pulse Resp B/P Pulse Ox O2 Delivery O2 Flow Rate FiO2 10/18/16 15:40 98.1 93 16 128/59 99 10/18/16 06:07 2.0 10/15/16 14:48 Nasal Cannula Intake and Output 10/17/16 10/17/16 10/18/16 15:00 23:00 07:00 Intake Total 650 ml 300 ml Output Total 825 ml Balance 650 ml -525 ml Exam No changes Constitutional: alert, oriented Results Result Diagram: 10/17/16 0707 10/18/16 0715 Results 24 hrs Laboratory Tests Test 10/17/16 21:11 10/18/16 02:47 10/18/16 07:15 10/18/16 08:09 Bedside Glucose 282 H 258 H 243 H Sodium Level 138 Potassium Level 4.0 Chloride Level 105 Carbon Dioxide Level 23 Anion Gap 14 Blood Urea Nitrogen 10 Creatinine 0.49 L Glucose Level 226 H Calcium Level 7.9 L Test 10/18/16 11:29 10/18/16 17:19 Bedside Glucose 109 87 Medications Medications Current Medications Ondansetron HCl (Zofran Tab) 4 mg Q6H PRN PO NAUSEA AND/OR VOMITING; Start at 18:30 Ondansetron HCl (Zofran Inj) 4 mg Q6H PRN IV NAUSEA AND/OR VOMITING; Start at 18:30 Metoclopramide HCl (Reglan) 10 mg Q6H PRN IV NAUSEA AND/OR VOMITING; Start at 18:30 Acetaminophen (Tylenol Tab) 650 mg Q6H PRN PO PAIN LEVEL 1-3 OR FEVER; Start at 18:30 Acetaminophen/ Hydrocodone Bitart ([place] (5/325)) 1 tab Q6H PRN PO PAIN LEVEL 4 -6 Last administered on 10/17/16 03:57; Admin Dose 1 TAB; Start 10/15/16 at 18: 30 Morphine Sulfate (morphine) 2 mg Q4H PRN IV PAIN LEVEL 7-10 Last administered on 10/16/16 21:31; Admin Dose 2 MG; Start 10/15/16 at 18:30 Docusate Sodium (Colace) 100 mg Q12H PRN PO CONSTIPATION; Start 10/15/16 at 18: 30 Magnesium Hydroxide (Milk Of Mag) 30 ml DAILY PRN PO CONSTIPATION; Start at 18:30 Bisacodyl (Dulcolax) 5 mg DAILY PRN PO CONSTIPATION; Start 10/15/16 at 18:30 Enoxaparin Sodium (Lovenox) 40 mg DAILY SC Last administered on 10/17/16 09:05 ; Admin Dose 40 MG; Start 10/16/16 at 09:00 Albuterol (Ventolin Hfa) as above Q4 PRN INH SHORTNESS OF BREATH; Start at 18:30 Aspirin (Halfprin) 81 mg AM PO Last administered on 10/17/16 08:39; Admin Dose 81 MG; Start 10/16/16 at 09:00 Furosemide (Lasix) 40 mg DAILY PO Last administered on 10/17/16 08:39; Admin Dose 40 MG; Start 10/16/16 at 09:00 Salmeterol Xinafoate/ Fluticasone (Advair 250/50 Diskus) 1 inh Q12 INH Last administered on 10/18/16 08:18; Admin Dose 1 INH; Start 10/15/16 at 21:00 Losartan Potassium (Cozaar) 25 mg DAILY PO Last administered on 10/17/16 08:40 ; Admin Dose 25 MG; Start 10/16/16 at 09:00 Miscellaneous Information 1 ea NOTE XX ; Start 10/15/16 at 19:00 Glucose (Glutose) 15 gm Q15M PRN PO DECREASED GLUCOSE; Start 10/15/16 at 19:00 Glucose (Glutose) 22.5 gm Q15M PRN PO DECREASED GLUCOSE; Start 10/15/16 at 19: 00 Dextrose (D50w Syringe) 25 ml Q15M PRN IV DECREASED GLUCOSE; Start 10/15/16 at 19:00 Dextrose (D50w Syringe) 50 ml Q15M PRN IV DECREASED GLUCOSE; Start 10/15/16 at 19:00 Glucagon (Glucagen) 1 mg Q15M PRN IM DECREASED GLUCOSE; Start 10/15/16 at 19:00 Glucose (Glutose) 15 gm Q15M PRN BUCCAL DECREASED GLUCOSE; Start 10/15/16 at 19 :00 Diagnostic Test (Pha) (Accu-Chek) 1 ea 02 XX ; Start 10/17/16 at 02:00 Ferrous Sulfate (Ferrous Sulfate (Ec)) 325 mg BID PO Last administered on 21:13; Admin Dose 325 MG; Start 10/16/16 at 10:00 Docusate Sodium (Colace) 100 mg BID PO Last administered on 10/17/16 21:13; Admin Dose 100 MG; Start 10/16/16 at 21:00 Montelukast Sodium (Singulair) 10 mg HS PO Last administered on 10/17/16 21:32 ; Admin Dose 10 MG; Start 10/16/16 at 21:00 Tamsulosin HCl (Flomax) 0.4 mg HS PO Last administered on 10/17/16 21:13; Admin Dose 0.4 MG; Start 10/16/16 at 21:00 Insulin Human NPH (Humulin N) 14 unit BID@08,20 SC Last administered on 08:22; Admin Dose 14 UNIT; Start 10/18/16 at 08:00 Prednisone (Prednisone) 10 mg DAILY PO ; Start 10/19/16 at 09:00 LADY ESCOBAR MD Oct 18, 2016 18:00
[2016-10-18] MEDS: MONTELUKAST 10 MG TAB PO SCH (20:16)
[2016-10-18] MEDS: TAMSULOSIN (SR) 0.4 MG CAP PO SCH (20:17)
[2016-10-18] MEDS: NPH, HUMAN INSULIN ISOPHANE 3ML VIAL SC SCH (20:26)
[2016-10-19] VITALS (9 sets, daily range): BP systolic 120–129; BP diastolic 60–76; PULSE 87–130; RESP 18–20
[2016-10-19 00:39] LABS: PROTEIN, TOTAL 6.5 g/dL (6.1-8.1)
[2016-10-19] MEDS: ACCU-CHEK XX SCH (02:00)
[2016-10-19] MEDS: metFORMIN 500 MG TAB PO SCH (07:56)
[2016-10-19] MEDS: NPH, HUMAN INSULIN ISOPHANE 3ML VIAL SC SCH (07:58)
[2016-10-19] MEDS: INSULIN ASPART [NOVOLOG] 3 ML PEN SC SCH ×4 (07:59→12:00)
[2016-10-19] MEDS: ENOXAPARIN 40 MG/0.4 ML SYG SC SCH (08:00)
[2016-10-19] MEDS: DOCUSATE SODIUM 100 MG CAP PO SCH (08:07)
[2016-10-19] MEDS: SALMETEROL/FLUTICASONE 250/50 INHA INH SCH (08:07)
[2016-10-19] MEDS: FERROUS SULFATE (EC) 325 MG TAB PO SCH (08:08)
[2016-10-19] MEDS: ASPIRIN (EC) 81 MG TAB PO SCH (08:08)
[2016-10-19] MEDS: FUROSEMIDE 40 MG TAB PO SCH (08:09)
[2016-10-19] MEDS: LOSARTAN 25 MG TAB PO SCH (08:09)
--- NOTE | 2016-10-19 08:54 | CONS ---
Date/Time of Note Date/Time of Note DATE: 10/19/16 TIME: 08:45 Assessment/Plan Assessment/Plan Chief Complaint/Hosp Course Patient most likely has prostate cancer as his PSA is elevated, CT of the chest shows sclerotic lesions over the bones and the bone scan is consistent with widespread metastasis and on the rectal exam his prostate is hard and nodular. We could start him on Casodex and he should follow-up with his medical group in the [facility] where he may undergo a biopsy of the prostate and may be also Lupron Depot injections Problems: Consultation Date/Type/Reason Admit Date/Time Oct 15, 2016 at 13:31 Date of Consultation: Oct 19, 2016 Type of Consultation: Urology Reason for Consultation Possible prostate cancer Referring Provider: BENNY GARRETT MD Hx of Present Illness HPI 76 yo M with past medical history of COPD, HTN, BPH, DM2 presented with several days of SOB. Pt states he's actually been feeling SOB for the past 3 years but it recently got acutely worse. Pt also reports decreased appetite and decreased PO intake and 20 pounds weight loss in the past month usually goes for [facility] for his medical care and states it is difficult to get there patient was found to have an elevated PSA and bone scan was showing a superscan. Consistent with widespread metastasis Constitutional: no complaints, other (Weight loss) Eyes: no complaints ENT: no complaints Respiratory: other (COPD), shortness of breath Cardiovascular: no complaints Gastrointestinal: no complaints Genitourinary: no complaints, other (Patient has nocturia 3-4 times during the day he voids every 1 hour his urinary stream as he states is normal but he does have urgency and urgency incontinence and he feels he does not empty his bladder well) Musculoskeletal: no complaints (Specifically denies any arm pain or leg pain but does complain of some upper back pain) Skin: no complaints Neurologic: no complaints Endocrine: no complaints Lymphatic: no complaints Psychological: nl mood/affect, no complaints Past Medical History Medical History: diabetes, high cholesterol, hypertension, other (COPD) Past Surgical History Past Surgical Hx: other (Surgery for hemorrhoids) Social History Alcohol Use: none Smoking Status: Never smoker Drug Use: none Exam/Review of Systems Vital Signs Vitals Vital Signs Date Time Temp Pulse Resp B/P Pulse Ox O2 Delivery O2 Flow Rate FiO2 10/19/16 08:06 87 10/19/16 07:34 98.2 20 123/76 99 10/18/16 06:07 2.0 10/15/16 14:48 Nasal Cannula Intake and Output 10/18/16 10/18/16 10/19/16 15:00 23:00 07:00 Intake Total 100 ml 600 ml 240 ml Balance 100 ml 600 ml 240 ml Exam Constitutional: alert, oriented Psych: no complaints Head: normocephalic Eyes: nl conjunctiva ENMT: nl external ears & nose Neck: supple Respiratory: normal air movement Cardiovascular: No edema Gastrointestinal: soft Genitourinary - Male: other (Rectal exam he has very tight rectum because of scar tissue from the hemorrhoidectomy that was gentle exam one could feel the prostate to be nodular and hard ) Musculoskeletal: nl extremities to inspection Extremities: No calf tenderness, No edema Results Bone scan Patchy heterogeneous distribution of radionuclide throughout the entire skeletal system along with a poor visualization of the kidneys likely represents super scan and may be seen in association with diffuse skeletal metastases. CAT scan of the chest There is a generalized sclerotic appearance of the entirety the osseous structures of the thorax. This could represent a diffuse metastatic process or presence of osteodystrophy. This can be further assessed with bone scan or MRI of the thoracic and lumbar spine. Emphysema is seen with mild bibasilar atelectasis and trace subpleural scarring without evidence of acute process. Cardiomegaly is seen with atherosclerotic disease. There is borderline ascending aortic aneurysmal enlargement measuring 4 cm. Result Diagram: 10/17/16 0707 10/18/16 0715 Results 24 hrs Laboratory Tests Test 10/18/16 11:29 10/18/16 17:19 10/18/16 18:02 10/18/16 19:02 Bedside Glucose 109 87 182 Prostate Specific Antigen 244.0 H Test 10/18/16 20:11 10/19/16 01:47 10/19/16 07:07 Bedside Glucose 233 H 219 179 Medications Medications Current Medications Ondansetron HCl (Zofran Tab) 4 mg Q6H PRN PO NAUSEA AND/OR VOMITING; Start at 18:30 Ondansetron HCl (Zofran Inj) 4 mg Q6H PRN IV NAUSEA AND/OR VOMITING; Start at 18:30 Metoclopramide HCl (Reglan) 10 mg Q6H PRN IV NAUSEA AND/OR VOMITING; Start at 18:30 Acetaminophen (Tylenol Tab) 650 mg Q6H PRN PO PAIN LEVEL 1-3 OR FEVER; Start at 18:30 Acetaminophen/ Hydrocodone Bitart ([place] (5/325)) 1 tab Q6H PRN PO PAIN LEVEL 4 -6 Last administered on 10/17/16 03:57; Admin Dose 1 TAB; Start 10/15/16 at 18: 30 Morphine Sulfate (morphine) 2 mg Q4H PRN IV PAIN LEVEL 7-10 Last administered on 10/16/16 21:31; Admin Dose 2 MG; Start 10/15/16 at 18:30 Docusate Sodium (Colace) 100 mg Q12H PRN PO CONSTIPATION; Start 10/15/16 at 18: 30 Magnesium Hydroxide (Milk Of Mag) 30 ml DAILY PRN PO CONSTIPATION; Start at 18:30 Bisacodyl (Dulcolax) 5 mg DAILY PRN PO CONSTIPATION Last administered on 08:08; Admin Dose 5 MG; Start 10/15/16 at 18:30 Enoxaparin Sodium (Lovenox) 40 mg DAILY SC Last administered on 10/19/16 08:00 ; Admin Dose 40 MG; Start 10/16/16 at 09:00 Albuterol (Ventolin Hfa) as above Q4 PRN INH SHORTNESS OF BREATH; Start at 18:30 Aspirin (Halfprin) 81 mg AM PO Last administered on 10/19/16 08:08; Admin Dose 81 MG; Start 10/16/16 at 09:00 Furosemide (Lasix) 40 mg DAILY PO Last administered on 10/19/16 08:09; Admin Dose 40 MG; Start 10/16/16 at 09:00 Salmeterol Xinafoate/ Fluticasone (Advair 250/50 Diskus) 1 inh Q12 INH Last administered on 10/19/16 08:07; Admin Dose 1 INH; Start 10/15/16 at 21:00 Losartan Potassium (Cozaar) 25 mg DAILY PO Last administered on 10/19/16 08:09 ; Admin Dose 25 MG; Start 10/16/16 at 09:00 Miscellaneous Information 1 ea NOTE XX ; Start 10/15/16 at 19:00 Glucose (Glutose) 15 gm Q15M PRN PO DECREASED GLUCOSE; Start 10/15/16 at 19:00 Glucose (Glutose) 22.5 gm Q15M PRN PO DECREASED GLUCOSE; Start 10/15/16 at 19: 00 Dextrose (D50w Syringe) 25 ml Q15M PRN IV DECREASED GLUCOSE; Start 10/15/16 at 19:00 Dextrose (D50w Syringe) 50 ml Q15M PRN IV DECREASED GLUCOSE; Start 10/15/16 at 19:00 Glucagon (Glucagen) 1 mg Q15M PRN IM DECREASED GLUCOSE; Start 10/15/16 at 19:00 Glucose (Glutose) 15 gm Q15M PRN BUCCAL DECREASED GLUCOSE; Start 10/15/16 at 19 :00 Diagnostic Test (Pha) (Accu-Chek) 1 ea 02 XX ; Start 10/17/16 at 02:00 Ferrous Sulfate (Ferrous Sulfate (Ec)) 325 mg BID PO Last administered on 08:08; Admin Dose 325 MG; Start 10/16/16 at 10:00 Docusate Sodium (Colace) 100 mg BID PO Last administered on 10/19/16 08:07; Admin Dose 100 MG; Start 10/16/16 at 21:00 Montelukast Sodium (Singulair) 10 mg HS PO Last administered on 10/18/16 20:16 ; Admin Dose 10 MG; Start 10/16/16 at 21:00 Tamsulosin HCl (Flomax) 0.4 mg HS PO Last administered on 10/18/16 20:17; Admin Dose 0.4 MG; Start 10/16/16 at 21:00 Prednisone (Prednisone) 10 mg DAILY PO ; Start 10/19/16 at 09:00 Insulin Human NPH (Humulin N) 12 unit BID@08,20 SC Last administered on 07:58; Admin Dose 12 UNIT; Start 10/18/16 at 20:00 GARRICK GRAY MD Oct 19, 2016 08:54
[2016-10-19] MEDS ORDERED: predniSONE 10 MG TAB PO SCH (09:00)
--- NOTE | 2016-10-19 09:56 | PDOCDIS ---
Discharge Instructions CONDITION Patient Condition: Stable HOME CARE INSTRUCTIONS: Special Diet: carb controlled FOLLOW UP/APPOINTMENTS Follow-up Plan 1.Follow up with primary care physician in 1 week If you don't have one please let someone know, we can give you resources that may help you pick one. You may also call your insurance company to assign one to you. Review your medication list with your nurse before leaving and if you need new prescriptions please let your nurse know. I may have made changes to your home medications or given you new prescriptions, please let your primary doctor know as well. Stay compliant with your medications and report any side effects to your PCP or pharmacist. Return to the ER if you have any concerns and cannot reach your doctors or call your insurance company, they usually have a nurse that can help you. 2. Call 911 or go to the nearest emergency room if experiencing loss of consciousness, dizziness, chest pain, shortness of breath, vomiting/abdominal pain, speech difficulties, motor weakness or any unusual symptoms. REFERRALS Other Referrals follow-up with your medical group in the [facility] where you may undergo a biopsy of the prostate Follow-up with [facility] oncology group TAMARA BOURNE NP Oct 19, 2016 09:56
[2016-10-19] MEDS ORDERED: BICALUTAMIDE 50 MG TAB PO SCH (10:00)
[2016-10-19] MEDS ORDERED: NPH,100V SC (10:03)
[2016-10-19] MEDS ORDERED: PRED10TA PO (10:03)
[2016-10-19] MEDS ORDERED: BICA50TA PO (10:03)
[2016-10-19] MEDS ORDERED: TAMS-14 PO (10:03)
[2016-10-19] MEDS ORDERED: METF500T PO (10:03)
[2016-10-19] MEDS ORDERED: NOVO3I SC (10:03)
[2016-10-19] MEDS ORDERED: FER325 PO (10:03)
--- NOTE | 2016-10-19 15:16 | DS ---
Date/Time of Note Date/Time of Note DATE: 10/19/16 TIME: 15:13 Discharge Summary Admission/Discharge Info Admit Date/Time Oct 15, 2016 at 13:31 Discharge Date/Time Oct 19, 2016 at 13:21 Discharge Diagnosis 1. COPD exacerbation, resolved 2. Type 2 diabetes 3. Diffuse osseous metastasis 4. Hypertension. 5. BPH 6. Probable prostate cancer Patient Condition: Stable Consults ,Onco ,Urology Procedures 10/18/2016. Needle biopsy 10/16/2016. Bone scan.Patchy heterogeneous distribution of radionuclide throughout the entire skeletal system along with a poor visualization of the kidneys likely represents super scan and may be seen in association with diffuse skeletal metastases. Hospital Course This is a very unfortunate 76-year-old male with a past medical history of type 2 diabetes, COPD, who was brought to the emergency room with worsening shortness of breath. In the emergency room, patient was noted in DKA and was treated with bronchodilators, IV steroids and DKA protocol and was admitted for further evaluation. Blood glucose was monitored closely and DKA resolved. Patient was eventually transitioned to sliding scale insulin with carbohydrate controlled diet with sliding scale insulin. He also had endocrinology evaluation and insulin was adjusted accordingly. Blood glucose remained stable. COPD exacerbation also resolved with bronchodilators and steroids. Steroids were tapered down. During the workup, a CT abdomen was chesty chest CT was concerning for diffuse metastatic process. Therefore patient had undergone a bone scan with the impression of SuperScan with possible diffuse skeletal metastasis. Patient was seen by oncology service and he also had a a leukoerythroblastic picture with nucleated RBC and metamyelocytes in the peripheral blood. Patient had undergone bone marrow biopsy. Patient was noted with elevated PSA and was evaluated by urology. He was started on Casodex orally and recommended follow- up with his medical group in the [facility] where patient may undergo a biopsy of the prostate and may also Lupron Depot injections. We contacted patient's son and his condition made aware. Currently, patient felt back to baseline and he is tolerating with diet and activities. There was no further difficulty breathing. At this time, patient is medically stable for discharge with outpatient follow-up for metastasis workup with [facility] group and with [facility]. He was also instructed to follow-up with oncology office for biopsy reports. Patient and family verbalized discharge instructions. Disposition: Patient will be discharged home with outpatient oncology workup. Condition at time of discharge is stable. Approximately 60 minutes was spent in coordinating the discharge on this patient. Case discussed with Dr.Rahi Dumont Meds Active Scripts Insulin Aspart* (Novolog Insulin Pen*) 100 Unit/Ml Soln, 4 UNIT SC WITH MEALS for 30 Days, #1 SYR Prov:BOURNE,TAMARA V. OFFICE SUPPORT 10/19/16 Prednisone* (Prednisone*) 10 Mg Tab, 10 MG PO DAILY for 2 Days, #2 TAB Prov:BOURNE,TAMARA V. OFFICE SUPPORT 10/19/16 Metformin Hcl (Glucophage) 500 Mg Tablet, 500 MG PO BID WITH MEALS, #60 TAB Prov:BOURNE,TAMARA V. OFFICE SUPPORT 10/19/16 Insulin NPH Human Isophane (Humulin N) 100 Unit/1 Ml Vial, 12 UNIT SC BID@08,20 for 30 Days, #1 VIAL Prov:BOURNE,TAMARA V. OFFICE SUPPORT 10/19/16 Ferrous Sulfate* (Ferrous Sulfate*) 325 Mg Tabec, 325 MG PO BID, #60 TAB Prov:BOURNE,TAMARA V. OFFICE SUPPORT 10/19/16 Tamsulosin Hcl* (Flomax*) 0.4 Mg Cap.er.24h, 0.4 MG PO HS, #30 CAP Prov:BOURNE,TAMARA V. OFFICE SUPPORT 10/19/16 Bicalutamide* (Casodex*) 50 Mg Tablet, 50 MG PO DAILY, #30 TAB Prov:BOURNE,TAMARA V. OFFICE SUPPORT 10/19/16 Hydrocodone/Acetaminophen (Guys 5-325 Tablet) 1 Each Tablet, 1 TAB PO Q6H Y for PAIN, #20 TAB Prov:JAS GARNER 07/23/16 Docusate Sodium* (Colace*) 100 Mg Capsule, 100 MG PO BID, #60 CAP Prov:LC DWYER MD 04/28/16 Furosemide* (Lasix*) 40 Mg Tablet, 40 MG PO DAILY, #7 TAB Prov:MERCEDES ARELLANO MD 02/20/16 Wjyltenxbdh-Q-Hwhpalrnwu Hb* (Guaifenesin* DM Syrup) 120 Ml Syrup, 10 ML PO Q4H Y for COUGH, #1 BOT Prov:DIANNA MARTÍNEZ NP 09/30/14 Albuterol Sulfate* (Albuterol Sulfate* HFA) 8.5 Gm Hfa.aer.ad, 1-2 PUFF INH Q4 Y for SHORTNESS OF BREATH, #1 EA Prov:DIANNA MARTÍNEZ NP 09/30/14 Reported Medications Salmeterol Xinaf/Fluticasone* (Advair 250/50 Diskus*) 1 Inh Inha, 1 INH INH Q12 05/20/11 Aspirin (Aspirin Low Dose) 81 Mg Tablet.dr, 81 MG PO AM, #1 01/01/11 Losartan Potassium* (Cozaar*) 25 Mg Tablet, PO DAILY 12/30/10 Discontinued Reported Medications Levalbuterol* (Xopenex* HFA) 15 Gm Inha, 1 INH INH Q12 05/20/11 [Regular] No Conflict Check, 25 SC PM 01/01/11 Insulin Human Regular (Novolin-R) 100 Unit/Ml Soln, 15 UNIT SC AM, #1 12/30/10 Metformin* (Glucophage*) 500 Mg Tab, PO DAILY 12/30/10 Terazosin Hcl* (Hytrin*) 2 Mg Capsule, 2 MG PO daily hs 11/12/10 Discontinued Scripts Hydrocodone/Acetaminophen (Guys 10-325 Tablet) 1 Each Tablet, 1 TAB PO Q6H Y for PAIN, #7 TAB Prov:LC DWYER MD 04/28/16 Azithromycin* (Zithromax*) 250 Mg Tablet, 250 MG PO .ZPACK DIRECTED, #6 TAB TAKE 500 MG (2 TABS) THE FIRST DAY THEN 250 MG (1 TAB) DAYS 2-5 Prov:MERCEDES ARELLANO MD 02/20/16 Albuterol Sulfate* (Ventolin HFA*) 18 Gm Hfa.aer.ad, 2 PUFF INHALATION Q4H, #1 INHALER Prov:MERCEDES ARELLANO MD 02/20/16 Prednisone* (Prednisone*) 20 Mg Tab, 40 MG PO DAILY for 4 Days, TAB Start February 21, 2016 Prov:MERCEDES ARELLANO MD 02/20/16 Follow-up Plan HOME CARE INSTRUCTIONS: Special Diet: carb controlled FOLLOW UP/APPOINTMENTS Follow-up Plan 1.Follow up with primary care physician in 1 week If you don't have one please let someone know, we can give you resources that may help you pick one. You may also call your insurance company to assign one to you. Review your medication list with your nurse before leaving and if you need new prescriptions please let your nurse know. I may have made changes to your home medications or given you new prescriptions, please let your primary doctor know as well. Stay compliant with your medications and report any side effects to your PCP or pharmacist. Return to the ER if you have any concerns and cannot reach your doctors or call your insurance company, they usually have a nurse that can help you. 2. Call 911 or go to the nearest emergency room if experiencing loss of consciousness, dizziness, chest pain, shortness of breath, vomiting/abdominal pain, speech difficulties, motor weakness or any unusual symptoms. REFERRALS Other Referrals follow-up with your medical group in the [facility] where you may undergo a biopsy of the prostate Follow-up with [facility] oncology group Primary Care Provider [facility] Comprehensive H.c. Pending Labs Laboratory Tests Test 10/18/16 17:19 10/18/16 18:02 10/18/16 19:02 10/18/16 20:11 Bedside Glucose 87mg/dL (70-220) 182mg/dL (70-220) 233mg/dL (70-220) Prostate Specific Antigen 244.0ng/ml (0.0-4.0) Test 10/19/16 01:47 10/19/16 07:07 10/19/16 12:24 Bedside Glucose 219mg/dL (70-220) 179mg/dL (70-220) 150mg/dL (70-220) TAMARA BOURNE NP Oct 19, 2016 15:16
[2016-10-19 18:13] LABS: ALBUMIN 3.1 g/dL (3.8-4.8)
--- NOTE | 2016-10-19 21:19 | CONS ---
Date/Time of Note Date/Time of Note DATE: 10/19/16 TIME: 20:36 Assessment/Plan Assessment/Plan Chief Complaint/Hosp Course 76 yo with #Diffuse osseous mets -PSA markedly elevated. Bone Marrow biopsy shows poorly differentiated adenocarcinoma consistent with metastatic prostate cancer. -pt will need to start Lupron -given new data from LATITUDE trial pt may benefit from upfront treatment with Zytiga -pt will need to initiate treatment at [facility] given his insurance #SOB -2/2 COPD exacerbation -pt SOB has currently improved -continue bronchodilators and steroids as ordered #DKA/ uncontrolled DM -BS currently controlled -appreciate endocrinology recs Problems: (1) Prostate cancer metastatic to bone Status: Chronic (2) Diabetes mellitus type 2 in nonobese Status: Chronic (3) Acute bronchitis Status: Acute Qualifiers: Bronchitis organism: unspecified organism Qualified Code: J20.9 - Acute bronchitis, unspecified organism Consultation Date/Type/Reason Admit Date/Time Oct 15, 2016 at 13:31 Initial Consult Date 10/19/16 Type of Consultation: Oncology Reason for Consultation metastatic prostate cancer Referring Provider: BENNY GARRETT MD 24 HR Interval Summary Free Text/Dictation pt was told that he has a high likelihood of metastatic prostate cancer. he still c/o bone pains. his shortness of breath has improved Exam/Review of Systems Vital Signs Vitals Vital Signs Date Time Temp Pulse Resp B/P Pulse Ox O2 Delivery O2 Flow Rate FiO2 10/19/16 12:04 113 10/19/16 11:39 98.0 18 120/66 98 10/18/16 06:07 2.0 10/15/16 14:48 Nasal Cannula Intake and Output 10/18/16 10/18/16 10/19/16 15:00 23:00 07:00 Intake Total 100 ml 600 ml 240 ml Balance 100 ml 600 ml 240 ml Exam Constitutional: alert Psych: nl mood/affect, no complaints Head: normocephalic Eyes: nl conjunctiva ENMT: nl external ears & nose Neck: non-tender, supple Respiratory: clear to auscultation Cardiovascular: regular rate and rhythm Gastrointestinal: soft Musculoskeletal: nl extremities to inspection Results Result Diagram: 10/17/16 0707 10/18/16 0715 Results 24 hrs Laboratory Tests Test 10/19/16 01:47 10/19/16 07:07 10/19/16 12:24 Bedside Glucose 219 179 150 REBECCA DAUGHERTY M.D. Oct 19, 2016 20:46
[2016-10-20 17:40] LABS: PSA, FREE >17.0 ng/mL
== END 2016-10-19 13:21 | disposition home or self-care (01) | DRG 190 ==
LOC: E/R 09:23 → MS4 13:31
PROVIDERS: ADMIT Internal Medicine; ATTEND Internal Medicine
PROC: 07DR3ZX Extraction of Iliac Bone Marrow, Percutaneous Approach, Diagnostic (ICD-10-PCS; principal; 2016-10-18)
DX: J44.1 Chronic obstructive pulmonary disease with (acute) exacerbation (principal); E13.10 Other specified diabetes mellitus with ketoacidosis without coma; C79.51 Secondary malignant neoplasm of bone; C61 Malignant neoplasm of prostate; D64.9 Anemia, unspecified; I10 Essential (primary) hypertension; E78.5 Hyperlipidemia, unspecified; J44.0 Chronic obstructive pulmonary disease with (acute) lower respiratory infection; J20.9 Acute bronchitis, unspecified; K21.9 Gastro-esophageal reflux disease without esophagitis; N40.1 Benign prostatic hyperplasia with lower urinary tract symptoms; N39.41 Urge incontinence; R39.14 Feeling of incomplete bladder emptying; R35.1 Nocturia; Z79.4 Long term (current) use of insulin
CPT/HCPCS: 36415; 71010; 71250; 77012; 78306; 80048; 80053; 81003; 82010; 82607; 82962; 83036; 83540; 83735; 83880; 83970; 84100; 84153; 84154; 84155; 84165; 84439; 84443; 84484; 85025; 85610; 85730; 86592; 86803; 87340; 93005; 93970; 94010; 94644; 96372; 96374; 96375; A9503; J1940; J1650; J1815; J2250; J2270; J2930; J3010; J7030; J7040; J7512